=== PATIENT | male | born 1985 | race Caucasian/White ===

== ENCOUNTER 2016-04-02 19:36 | Emergency (ER) | payer BC, OTHER ==
[~2016-04-02] VITALS: Ht 182.9 cm; Wt 86.4 kg
[~2016-04-02 19:36] MED LIST: CIPR1TAB10 PO; IBUP-1050 PO; [UNRECOGNIZED DRUG - CODE] PO
[2016-04-02 19:44] VITALS: TEMP 37; Ht 182.9 cm; Wt 86.4 kg
[2016-04-02] MEDS ORDERED: XYLOCAINE 1%/SOD BICARB 20 ML VIAL INFIL ONE (20:00)
[2016-04-02 21:13] VITALS: BP 123/87; PULSE 60; O2SAT 100
--- NOTE | 2016-04-03 14:36 | EMERGENCY ROOM VISIT NOTE ---
ED Visit Note First contact with patient: 19:50 Chief Complaint: Right hand lacerations. History of Present Illness: Mr. Alexander is a 30-year-old white male who ambulates into the ED accompanied by his father complaining of several lacerations on his right hand. He reports approximately 1 hour he was opening a can lid where the open her mouth function he attempting to pry the lid off with his hand and sustained 3 lacerations to the right hand. He control bleeding prior to the hospital but not wash the wound. Laceration he reports he has a stinging pain over the lacerations. He rates his discomfort 1/10. The pain is nonradiating. His pain worsens with palpation. He has not identified any alleviating factors to the pain. He has not taken medication for pain prior to arrival at the hospital. He denies any associated symptoms; he denies any associated finger weakness/numbness/ tingling.. Review of Systems: As noted above in history of present illness. 8 body systems were reviewed and found to be negative as noted above. Past Medical History: Unspecified eye surgery. Current Medications: Acetazolamide. Allergies to Medications: Aspirin, cephalosporins, electrolyte, NSAIDs, penicillin, pertussis vaccination, phenothiazines, sulfa, vancomycin. Social History: Patient is currently employed; he feels safe in his home environment; he denies tobacco and alcohol use. Tetanus Immunization Status: Patient believes greater than 10 years. Physical Examination: Vital Signs: Date Time Temp Pulse Resp B/P Pulse Ox O2 Delivery O2 Flow Rate FiO2 04/02/16 21:13 60 16 123/87 100 Room Air 04/02/16 19:44 37.0 81 18 152/104 99 Room Air GENERAL: 30-year-old male in mild distress due to pain, nontoxic-appearing, afebrile and hemodynamically stable. NEUROLOGICAL: Awake, alert and oriented to person, place and time. Answering questions appropriately and following commands. SKIN: Warm, dry and pink. Right Hand: Patient has 3 lacerations on the right hand, 2 are superficial wounds full-thickness. The superficial lacerations on the finger pad of the index finger and over the ring finger over the proximal phalanx; each and these are approximately 1 cm in length and are not actively bleeding. Full-thickness laceration is over middle finger PIP joint measures approximately 1.3 cm. Once again there is no active bleeding. No soft tissue eruptions or trauma noted. RIGHT HAND: Lacerations as noted above. There is no gross bony deformity. He has full range of motion in flexion and extension of all MCP, PIP and DIP joints against resistance. Throughout the finger the skin was warm and pink and capillary refill is brisk. He was able to distinguish light sensations through all dermatomes of the fingers. ED Course: Patient is assessed as noted above. Wound Repair: Complexity: Basic Verbal consent was obtained after the risks and benefits were explained. The skin was prepped with betadine and a sterile field set. Wound edges of the full-thickness wound was anesthetized with 1.4 ml buffered 1 % lidocaine. The wound was explored for foreign bodies and none found. Copious irrigation was performed using sterile saline. With direct pressure the bleeding subsided. Debridement was not performed. The wound edges were approximated using 5-0 Ethilon with 3 simple interrupted sutures. Hemostasis and excellent approximation was achieved. Antibacterial ointment and a sterile dressing applied. Patient's other wounds were cleansed with antibacterial soap and water and covered with bacitracin dressings. No complications and the patient tolerated the procedure well. Patient was educated about tonight's findings and instructed on his treatment plan; he verbalizes understanding and agreement with this plan. Clinical Impression: Lacerations of the right hand. Disposition: Patient discharged home in stable condition; prior to departure he was reassessed and subjectively reported he was pain-free. Plan: Comfort measures, wound care, and signs of infection were discussed with the patient. Patient was encouraged to follow-up with PCP or return ED for signs of infection and/or suture removal in 10-12 days
== END 2016-04-02 21:20 | disposition home or self-care (01) ==
LOC: C.EDB 19:37 → C.EDD 21:20
DX: S61.411A Laceration without foreign body of right hand, initial encounter (principal); W26.8XXA Contact with other sharp object(s), not elsewhere classified, initial encounter

== ENCOUNTER 2020-01-22 03:59 | Observation (INO) ==
[2020-01-22] MEDS ORDERED: ONDANSETRON INJ 2 MG/ML 2 ML VIAL IV STA (04:23)
[2020-01-22] MEDS ORDERED: SODIUM CHLORIDE 0.9% 1000ML 1,000 ML IV SCH (04:30)
[2020-01-22] MEDS: MoRPHine SULFATE 4 MG/ML 1 ML CARP\\VIAL IV PRN ×2 (04:38→07:27)
[2020-01-22 04:40] LABS: Basophils # (auto) 0.02 K/uL (0-0.2); Basophils % (auto) 0.2 %; Eosinophils # (auto) 0.07 K/uL (0-0.5); Eosinophils % (auto) 0.6 %; Hematocrit (blood only) 45.9 % (42-52); Hemoglobin 15.8 g/dL (14.0-18.0); Immature Granulocytes # (auto) 0.02 K/uL (0.00-0.02); Immature Granulocytes % (auto) 0.2 %; Lymphocytes # (auto) 2.49 K/uL (1.2-3.4); Lymphocytes % (auto) 22.7 %; Mean Corpuscular Hgb Conc 34.4 g/dL (32-36); Mean Platelet Volume 11.4 fL (7.4-10.4); Monocytes # (auto) 0.81 K/uL (0.11-0.59); Monocytes % (auto) 7.4 %; Neutrophils # (auto) 7.55 K/uL (1.4-6.5); Neutrophils % (auto) 68.9 %; Platelet Count 203 K/uL (130-400); RDW Coefficient of Variation 12.7 % (11.5-14.5); RDW Standard Deviation 42.1 fL (36.4-46.3); White Blood Count 10.96 K/uL (4.8-10.8)
[2020-01-22 04:49] LABS: iSTAT Creatinine 0.9 mg/dl (0.6-1.3); iSTAT Hemoglobin 16.3 g/dl (14.0-18.0); iSTAT Ionized Calcium 1.19 mmol/l (1.12-1.32); iSTAT Potassium 4.4 mmol/L (3.3-5.0)
[2020-01-22 04:52] LABS: Partial Thromboplastin Time 29.2 Seconds (21.0-31.0); Prothrombin Time 10.9 Seconds (9.0-12.0)
[2020-01-22 05:04] LABS: Alanine Aminotransferase 34 U/L (12-78); Albumin Level 4.5 gm/dl (3.4-5.0); Aspartate Aminotransferase 18 U/L (15-37); BUN Creatinine Ratio 24.1 (10-20); Blood Urea Nitrogen 22 mg/dl (7-18); Calcium 9.5 mg/dl (8.5-10.1); Carbon Dioxide 30 mmol/L (21-32); Chloride 103 mmol/L (98-107); Creatinine Clr Calc Pharmacy 123.2 ml/min; Est GFR (African American) 125.2; Glucose 97 mg/dl (70-99); Lipase 106 U/L (73-393); Magnesium 2.3 mg/dl (1.8-2.4); Potassium 4.3 mmol/L (3.5-5.1); Sodium 136 mmol/L (136-145)
[2020-01-22 05:07] LABS: Albumin Globulin Ratio 1.2 (0.9-2); Alkaline Phosphatase 63 U/L (45-117); Bilirubin,Total 0.8 mg/dl (0.2-1); C Reactive Protein < 0.29 mg/dl (0-0.29); Globulin 3.7 gm/dl (2.5-4.0); Total Protein 8.2 gm/dl (6.4-8.2)
--- NOTE | 2020-01-22 07:50 | CT Scan Report ---
CT SCAN OF THE ABDOMEN AND PELVIS WITHOUT CONTRAST CLINICAL HISTORY: Right lower quadrant abdominal pain COMPARISON STUDY: January 2016 TECHNIQUE: CT scan of the abdomen and pelvis was performed from the lung bases to the proximal femurs . Images are reviewed in the axial, sagittal, and coronal planes. IV contrast was not administered fo r this examination. A dose lowering technique was utilized adhering to the principles of ALARA. CT DOSE: 718.69 mGy.cm FINDINGS: Lower chest: The heart is normal in size and configuration, without pericardial effusion. The lung ba ses and pleural spaces are clear. Liver: There is a ventriculoperitoneal shunt catheter. There is a persistent small fluid collection l oculated around the catheter at the anterior margin of the liver. No intrahepatic masses are visualiz ed. Gallbladder: Unremarkable. Spleen: Normal in size and attenuation. Pancreas: Unremarkable. Adrenal glands: Unremarkable. Kidneys: There is a 3 mm nonobstructing left renal calculus. No ureteral calculi are visualized. Bowel: There are dilated small bowel loops with bowel wall edema. The distal small bowel is of normal caliber. The colon is collapsed. The findings are indicative of a small bowel obstruction. There is mild mesenteric edema. The site of obstruction appears to be located within the anterior midabdomen. There is no pneumatosis. There is no portal venous gas. There is mild appendiceal distention similar to the prior study. There is no periappendiceal inflammatory change. Peritoneum: There is no intraperitoneal free air or abdominal ascites. Vasculature: The abdominal aorta is normal in course and caliber. Adenopathy: None. Pelvic viscera: The bladder, and pelvic viscera are unremarkable. Skeletal structures: No destructive osseous lesions are seen. IMPRESSION: 1. Small bowel obstruction. There is associated small bowel wall thickening and mesenteric edema. The re is no pneumatosis. There is no portal venous gas. 2. Nonobstructing left renal calculus 3. Inflammatory stranding surrounding the transverse colon, likely a secondary finding to the small b owel obstruction and mesenteric edema 4. Ventriculoperitoneal shunt catheter with small loculated fluid collections anterior to the left lo be of the liver ACT 112: Negative or not required by law. Electronically signed by: Siva Garg M.D. 01/22/2020 7:48 AM
--- NOTE | 2020-01-22 08:03 | History & Physical Report ---
Date of Service January 22, 2020 Assessment & Plan (1) Small bowel obstruction: (2) Dehydration: He is under observation, Med/Surg, IVFs, NPO except Meds, Sips and Chips, Surgery eval, Monitor daily labs. Labs checked ROS-No Headache, No Visual Changes, No Nausea, No Vomiting, No Fever, No Chills, No Neck Pain or Stiffness, No Chest Pain, No Palpitations, No SOB, No VALDES, No Cough, No Sputum, No Wheezing, + Mid Abdominal Pain, No Diarrhea, No Hematemesis, No Hemoptysis, No Unexpected Weight Loss, No Flank pain, No Melena, No Hematochezia, No Frequency, No Urgency, No Burning, No Hematuria, No Rashes, No Diaphoresis. Appetite is Normal Physical Exam Gen-AAO x 3, NAD, Afebrile Head-NCAT, EOMI, PERRLA, Anicteric Sclera, No Posterior Pharyngeal Erythema Neck-Supple, No JVD, No Thyromegaly, No Masses, No LAD, No Bruits Lungs-Clear to Auscultation Bilaterally, No Rales, No Rhonchi, No Wheezing, No Crepitus Chest-No S4, +S1, +S2, No S3, No Murmurs, No Rubs, No Gallops, No Ectopy Abdomen-Soft, Bowel Sounds Present, Tender, Non Distended, No Hepatomegaly, No Splenomegaly, No Palpable Masses, No Rebound, No Rigidity, No Guarding Musculoskeletal-Full Range of Motion Bilaterally, No CVAT Extremities-No Cyanosis, No Clubbing, No Edema Nuero-Cranial Nerves II-XII grossly intact, Motor WNL, DTRs WNL, Strength WNL, Non Focal Psych-Normal Mood History of Present Illness Chief Complaint: Abd pain Primary Care Provider: Michelle Hall MD 34-year-old male with a past medical history of hydrocephalus, for which he has a ventriculoperitoneal shunt placed and 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 Patient woke up around 2:30 AM with severe mid abdominal pain that was 10 out of 10 when he came in and has now been reduced to 6 out of [address] scan revealed a small bowel obstruction with small bowel thickening. He did not have any nausea or vomiting, his pain did not radiate anywhere, he denies any fevers chills or diaphoresis. He has no diarrhea. He denies any blood in his stool, he has not had a bowel movement and is not passing flatus. Past medical historyhydrocephalus and papilledema Past surgical history- ventriculoperitoneal shunt, right eye surgery for pap illedema Medicationsas below Family historymother is alive and healthy, father is alive with diabetes, he has 2 healthy sisters and currently no children Social historyhe works at the [employer], occasionally drinks alcohol, denies tobacco, denies illicit drug use, he is with no children Allergies Allergy/AdvReac Type Severity Reaction Status Date / Time Cephalosporins Allergy Intermediate VERY RED Verified 01/22/20 04:59 RASH Sulfa (Sulfonamide Allergy Intermediate RASH- Verified 01/22/20 04:59 Antibiotics) JAZMIN NSAIDS (Non-Steroidal Allergy Unknown CAN'T Verified 01/22/20 04:59 Anti-Inflamma REMEMBER Penicillins Allergy Unknown CAN'T Verified 01/22/20 04:59 REMEMBER Pertussis Vaccines Allergy Unknown CAN'T Verified 01/22/20 04:59 REMEMBER Phenothiazines Allergy Unknown CAN'T Verified 01/22/20 04:59 REMEMBER vancomycin Allergy Unknown CAN'T Verified 01/22/20 04:59 REMEMBER zinc Allergy Unknown CAN'T Verified 01/22/20 04:59 REMEMBER aspirin AdvReac Intermediate NOSEBLEEDS Verified 01/22/20 04:59 Macrolide Antibiotics AdvReac Mild upset Verified 01/22/20 04:59 stomach to erythromycin Home Medications Home Medications Medication Instructions Recorded Confirmed Type furosemide 40 mg PO DAILY 01/22/20 01/22/20 History Past Med/Surg History Medical History (Updated 01/22/20 @ 08:01 by Mitch Randhawa DO) Hydrocephalus Social History Smoking Status: Never smoker Preferred Language: Haitian Feels Safe at Home: Yes Results & Data Results & Data ([facility]) Vital Signs (Past 12 Hours) Vital Signs Temp Pulse Pulse Resp BP BP Pulse Ox 01/22/20 06:44 52 L 18 133/87 100 01/22/20 06:00 51 L 13 127/81 97 01/22/20 05:30 54 L 13 125/84 97 01/22/20 05:13 61 17 134/87 97 01/22/20 04:30 63 18 99 01/22/20 04:09 36.9 C 65 14 149/90 H 98 Allergies Cephalosporins Allergy (Intermediate, Verified 01/22/20 04:59) VERY RED RASH Sulfa (Sulfonamide Antibiotics) Allergy (Intermediate, Verified 01/22/20 04:59) RASH- JAZMIN NSAIDS (Non-Steroidal Anti-Inflamma Allergy (Unknown, Verified 01/22/20 04:59) CAN'T REMEMBER Penicillins Allergy (Unknown, Verified 01/22/20 04:59) CAN'T REMEMBER Pertussis Vaccines Allergy (Unknown, Verified 01/22/20 04:59) CAN'T REMEMBER Phenothiazines Allergy (Unknown, Verified 01/22/20 04:59) CAN'T REMEMBER vancomycin Allergy (Unknown, Verified 01/22/20 04:59) CAN'T REMEMBER zinc Allergy (Unknown, Verified 01/22/20 04:59) CAN'T REMEMBER aspirin Adverse Reaction (Intermediate, Verified 01/22/20 04:59) NOSEBLEEDS Macrolide Antibiotics Adverse Reaction (Mild, Verified 01/22/20 04:59) upset stomach to erythromycin Height/Weight/Isolation Height 6 ft Weight 79.1 kg Chemistry 01/22/20 04:30 Sodium 136 Potassium 4.3 Chloride 103 Carbon Dioxide 30 Anion Gap 3.0 BUN 22 H Creatinine 0.91 Glucose 97
[2020-01-22] MEDS ORDERED: ONDANSETRON INJ 2 MG/ML 2 ML VIAL IV PRN (10:52)
[2020-01-22] MEDS ORDERED: ACETAMINOPHEN 325 MG TAB PO PRN (10:52)
[2020-01-22] MEDS ORDERED: MoRPHine SULFATE 4 MG/ML 1 ML CARP\\VIAL IV PRN (10:52)
[2020-01-22] MEDS: D5W AND 1/2NSS 1,000 ML IV SCH ×2 (11:07→18:32)
[2020-01-22 11:28] LABS: Appearance Urine Clear (Clear); Bilirubin Urine Negative (Negative); Blood Urine Negative (Negative); Color Urine Yellow; Glucose Urine UA Negative (Negative); Ketones Urine 1+ (Negative); Leukocyte Esterase Urine Negative (Negative); Nitrite Urine Negative (Negative); Protein Urine Negative (Negative); Specific Gravity Urine 1.023 (1.000-1.030); Urobilinogen Urine Negative (Negative)
--- NOTE | 2020-01-22 11:39 | Surgery Consultation ---
Date of Consultation January 22, 2020 Assessment & Plan (1) Small bowel obstruction: pt is a 34 year-old male who was admitted to hospital for SBO, IMP: SBO, Plan, no emergent surgery indication now, conservative treatment now, NPO, IV fluid, control pain, repeat labs in am, pt may need NG tube if pt develops vomiting, pt and hsi family member agree with the plan, I answered all questions, will F/U, Present on Admission?: Yes History of Present Illness Attending Physician: Mitch Randhawa, History of Present Illness Chief Complaint: Abd pain Primary Care Provider: Michelle Hall MD 34-year-old male with a past medical history of hydrocephalus, for which he has a ventriculoperitoneal shunt placed and 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 Patient woke up around 2:30 AM with severe mid abdominal pain that was 10 out of 10 when he came in and has now been reduced to 6 out of [address] scan revealed a small bowel obstruction with small bowel thickening. He did not have any nausea or vomiting, his pain did not radiate anywhere, he denies any fevers chills or diaphoresis. He has no diarrhea. He denies any blood in his stool, he has not had a bowel movement and is not passing flatus. I ( Andreas Andres MD ) got a call for consult SBO, I reviewed pt's H/P, labs, CT scan with pt, pt feels better, last BM early this morning, Past medical historyhydrocephalus and papilledema Past surgical history- ventriculoperitoneal shunt, right eye surgery for papilledema Medicationsas below Family historymother is alive and healthy, father is alive with diabetes, he has 2 healthy sisters and currently no children Social historyhe works at the [employer], occasionally drinks alcohol, denies tobacco, denies illicit drug use, he is with no children Allergies Allergy/AdvReac Type Severity Reaction Status Date / Time Cephalosporins Allergy Intermediate VERY RED Verified 01/22/20 04:59 RASH Sulfa (Sulfonamide Allergy Intermediate RASH- Verified 01/22/20 04:59 Antibiotics) JAZMIN NSAIDS (Non-Steroidal Allergy Unknown CAN'T Verified 01/22/20 04:59 Anti-Inflamma REMEMBER Penicillins Allergy Unknown CAN'T Verified 01/22/20 04:59 REMEMBER Pertussis Vaccines Allergy Unknown CAN'T Verified 01/22/20 04:59 REMEMBER Phenothiazines Allergy Unknown CAN'T Verified 01/22/20 04:59 REMEMBER vancomycin Allergy Unknown CAN'T Verified 01/22/20 04:59 REMEMBER zinc Allergy Unknown CAN'T Verified 01/22/20 04:59 REMEMBER aspirin AdvReac Intermediate NOSEBLEEDS Verified 01/22/20 04:59 Macrolide Antibiotics AdvReac Mild upset Verified 01/22/20 04:59 stomach to erythromycin Home Medications Home Medications Medication Instructions Recorded Confirmed Type furosemide 40 mg PO DAILY 01/22/20 01/22/20 History Past Med/Surg History Medical History (Updated 01/22/20 @ 08:01 by Mitch Randhawa DO) Hydrocephalus Social History Smoking Status: Never smoker Preferred Language: [place] African Feels Safe at Home: Yes Results & Data Results & Data ([facility]) Vital Signs (Past 12 Hours) Vital Signs Temp Pulse Pulse Resp BP BP Pulse Ox 01/22/20 06:44 52 L 18 133/87 100 01/22/20 06:00 51 L 13 127/81 97 01/22/20 05:30 54 L 13 125/84 97 01/22/20 05:13 61 17 134/87 97 01/22/20 04:30 63 18 99 01/22/20 04:09 36.9 C 65 14 149/90 H 98 Allergies Cephalosporins Allergy (Intermediate, Verified 01/22/20 04:59) VERY RED RASH Sulfa (Sulfonamide Antibiotics) Allergy (Intermediate, Verified 01/22/20 04:59) RASH- JAZMIN NSAIDS (Non-Steroidal Anti-Inflamma Allergy (Unknown, Verified 01/22/20 04:59) CAN'T REMEMBER Penicillins Allergy (Unknown, Verified 01/22/20 04:59) CAN'T REMEMBER Pertussis Vaccines Allergy (Unknown, Verified 01/22/20 04:59) CAN'T REMEMBER Phenothiazines Allergy (Unknown, Verified 01/22/20 04:59) CAN'T REMEMBER vancomycin Allergy (Unknown, Verified 01/22/20 04:59) CAN'T REMEMBER zinc Allergy (Unknown, Verified 01/22/20 04:59) CAN'T REMEMBER aspirin Adverse Reaction (Intermediate, Verified 01/22/20 04:59) NOSEBLEEDS Macrolide Antibiotics Adverse Reaction (Mild, Verified 01/22/20 04:59) upset stomach to erythromycin Height/Weight/Isolation Height 6 ft Weight 79.1 kg Chemistry 01/22/20 04:30 Sodium 136 Potassium 4.3 Chloride 103 Carbon Dioxide 30 Anion Gap 3.0 BUN 22 H Creatinine 0.91 Glucose 97 Allergies Allergy/AdvReac Type Severity Reaction Status Date / Time Cephalosporins Allergy Intermediate VERY RED Verified 01/22/20 04:59 RASH Sulfa (Sulfonamide Allergy Intermediate RASH- Verified 01/22/20 04:59 Antibiotics) JAZMIN NSAIDS (Non-Steroidal Allergy Unknown CAN'T Verified 01/22/20 04:59 Anti-Inflamma REMEMBER Penicillins Allergy Unknown CAN'T Verified 01/22/20 04:59 REMEMBER Pertussis Vaccines Allergy Unknown CAN'T Verified 01/22/20 04:59 REMEMBER Phenothiazines Allergy Unknown CAN'T Verified 01/22/20 04:59 REMEMBER vancomycin Allergy Unknown CAN'T Verified 01/22/20 04:59 REMEMBER zinc Allergy Unknown CAN'T Verified 01/22/20 04:59 REMEMBER aspirin AdvReac Intermediate NOSEBLEEDS Verified 01/22/20 04:59 Macrolide Antibiotics AdvReac Mild upset Verified 01/22/20 04:59 stomach to erythromycin Home Medications Home Medications Medication Instructions Recorded Confirmed Type furosemide 40 mg PO DAILY 01/22/20 01/22/20 History Patient History Medical History (Updated 01/22/20 @ 08:01 by Mitch Randhawa DO) Hydrocephalus Social History Smoking Status: Never smoker Second Hand Exposure: No; Do You Dip or Chew Tobacco: No; Tobacco Cessation Education Requested by Patient: No Hx Alcohol Use: Yes Hx Substance Use: No Preferred Language: [place] African Communication Ability: Effective Web[employer] Portal Architect Required: No Beliefs That Will Affect Care: None Current Living Situation: Spouse Other Information That Helps Us Care for You: No Feels Safe at Home: Yes Safety Concerns: Feels Safe At This Time Assistive Devices: Glasses Review of Systems Review of Systems: All systems reviewed & are unremarkable except as noted in HPI & below Constitutional: as per Subjective / HPI Eyes: as per Subjective / HPI Ear, Nose, Mouth, Throat: as per Subjective / HPI Respiratory: as per Subjective / HPI Cardiovascular: as per Subjective / HPI Gastrointestinal: as per Subjective / HPI Genitourinary: + as per Subjective / HPI Musculoskeletal: as per Subjective / HPI Integumentary: as per Subjective / HPI Neurologic: as per Subjective / HPI obstructive hydrocephalus, V-P shunt, migraine Psychiatric: as per Subjective / HPI Endocrine: as per Subjective / HPI Hematologic / Lymphatic: as per Subjective / HPI Allergy / Immunological: as per Subjective / HPI Physical Exam Constitutional: WD/WN, vitals as above well developed and well nourished Eyes: PERRL, conjunctivae normal, anicteric sclerae ENMT: external ear and nose normal, oropharynx normal Neck: trachea midline, no thyromegaly Respiratory: normal respiratory effort, lungs clear to auscultation Cardiovascular: RRR, no murmur, no edema Rate/Rhythm: regular rate and regular rhythm Gastrointestinal (Abdomen): normal bowel sounds, soft, nontender, no hepatosplenomegaly middle line scar, no tenderness, no distend, BS + Musculoskeletal: no cyanosis or clubbing, extremities motor strength 5/5 Skin: no rashes, warm and dry Neurologic: awake Psychiatric: Orientation: alert and oriented x 3 Results & Data ([facility]) Vital Signs (Past 12 Hours) Vital Signs Temp Pulse Pulse Resp BP BP Pulse Ox 01/22/20 11:12 36.9 C 56 L 159/88 H 99 01/22/20 10:29 48 L 16 134/90 96 01/22/20 09:17 51 L 16 132/85 01/22/20 09:00 50 L 16 134/87 97 01/22/20 06:44 52 L 18 133/87 100 01/22/20 06:00 51 L 13 127/81 97 01/22/20 05:30 54 L 13 125/84 97 01/22/20 05:13 61 17 134/87 97 01/22/20 04:30 63 18 99 01/22/20 04:09 36.9 C 65 14 149/90 H 98 Laboratory Results Abnormal lab results 01/22/20 01/22/20 01/22/20 Range/Units 04:30 04:30 04:34 WBC 10.96 H (4.8-10.8) K/uL MPV 11.4 H (7.4-10.4) fL Neut # (Auto) 7.55 H (1.4-6.5) K/uL Mobile # (Auto) 0.81 H (0.11-0.59) K/uL POC Chloride 100 L (101-112) mmol/L POC Anion Gap 14.0 L (16-25) mmol/L POC BUN 23 H (7-18) mg/dl BUN 22 H (7-18) mg/dl BUN/Creatinine Ratio 24.1 H (10-20) Urine Ketones (Negative) 01/22/20 Range/Units 11:11 WBC (4.8-10.8) K/uL MPV (7.4-10.4) fL Neut # (Auto) (1.4-6.5) K/uL Mobile # (Auto) (0.11-0.59) K/uL POC Chloride (101-112) mmol/L POC Anion Gap (16-25) mmol/L POC BUN (7-18) mg/dl BUN (7-18) mg/dl BUN/Creatinine Ratio (10-20) Urine Ketones 1+ H (Negative) Diagnostic Findings CT SCAN OF THE ABDOMEN AND PELVIS WITHOUT CONTRAST CLINICAL HISTORY: Right lower quadrant abdominal pain COMPARISON STUDY: January 2016 TECHNIQUE: CT scan of the abdomen and pelvis was performed from the lung bases to the proximal femurs. Images are reviewed in the axial, sagittal, and coronal planes. IV contrast was not administered for this examination. A dose lowering technique was utilized adhering to the principles of ALARA. CT DOSE: 718.69 mGy.cm FINDINGS: Lower chest: The heart is normal in size and configuration, without pericardial effusion. The lung bases and pleural spaces are clear. Liver: There is a ventriculoperitoneal shunt catheter. There is a persistent small fluid collection loculated around the catheter at the anterior margin of the liver. No intrahepatic masses are visualized. Gallbladder: Unremarkable. Spleen: Normal in size and attenuation. Pancreas: Unremarkable. Adrenal glands: Unremarkable. Kidneys: There is a 3 mm nonobstructing left renal calculus. No ureteral calculi are visualized. Bowel: There are dilated small bowel loops with bowel wall edema. The distal small bowel is of normal caliber. The colon is collapsed. The findings are indicative of a small bowel obstruction. There is mild mesenteric edema. The site of obstruction appears to be located within the anterior midabdomen. There is no pneumatosis. There is no portal venous gas. There is mild appendiceal distention similar to the prior study. There is no periappendiceal inflammatory change. Peritoneum: There is no intraperitoneal free air or abdominal ascites. Vasculature: The abdominal aorta is normal in course and caliber. Adenopathy: None. Pelvic viscera: The bladder, and pelvic viscera are unremarkable. Skeletal structures: No destructive osseous lesions are seen. IMPRESSION: 1. Small bowel obstruction. There is associated small bowel wall thickening and mesenteric edema. There is no pneumatosis. There is no portal venous gas. 2. Nonobstructing left renal calculus 3. Inflammatory stranding surrounding the transverse colon, likely a secondary finding to the small bowel obstruction and mesenteric edema 4. Ventriculoperitoneal shunt catheter with small loculated fluid collections anterior to the left lobe of the liver FL small bowel follow through CLINICAL HISTORY: SMALL BOWEL INTUSSUSCEPTION COMPARISON STUDY: CT of the abdomen and pelvis January 20, 2016. FLUOROSCOPY TIME: 5 minutes. FLUOROSCOPIC IMAGES: 7. FINDINGS: Cashier Clerk KUB demonstrates a normal bowel gas pattern. Pelvic calcifications represent phleboliths. No mucosal abnormalities identified within the jejunum or ileum. There is no evidence for a small bowel obstruction. No intussusception was identified by fluoroscopy. Transit time to the cecum was rapid at 20 minutes. Incidental note is made of a catheter projecting over the right upper quadrant of the abdomen. This was shown on prior CT. IMPRESSION: 1. Unremarkable small bowel follow-through. No mass or intussusception identified. 2. Rapid transit time of contrast to the cecum.
[2020-01-22] MEDS: HEPARIN SOD 5,000 UNIT/0.5 ML VIAL SQ SCH ×2 (13:02→19:40)
[2020-01-23] MEDS: D5W AND 1/2NSS 1,000 ML IV SCH ×2 (02:32→10:57)
--- NOTE | 2020-01-23 06:22 | Emergency Department Note ---
History of Present Illness General Chief complaint: Abdominal Pain Stated complaint: SHARP RIGHT SIDED ABDOMINAL PAIN Time Seen by Provider: 01/22/20 04:12 History of Present Illness Maximum Pain Intensity: 10 This is a 34-year-old male presenting to the emergency department for evaluation of right-sided abdominal pain for the past 1 to 2 hours. The patient is fairly healthy, but does have an old history of hydrocephalus with shunt. The patient relates a history of enlarged appendix findings in the past, but has not had any distinct surgical process other than his shunt. The patient has not had fevers or chills. He is slightly nauseated but without vomiting. He feels like he has been eating, drinking, and using the bathroom is normal. His discomfort tonight is much stronger than normal, and rates a 10/10. He has not tried anything [id number] for his symptoms. Home Medications Home Medications Medication Instructions Recorded Confirmed Type furosemide 40 mg PO DAILY 01/22/20 01/22/20 History Allergies Allergy/AdvReac Type Severity Reaction Status Date / Time Cephalosporins Allergy Intermediate VERY RED Verified 01/22/20 04:59 RASH Sulfa (Sulfonamide Allergy Intermediate RASH- Verified 01/22/20 04:59 Antibiotics) JAZMIN NSAIDS (Non-Steroidal Allergy Unknown CAN'T Verified 01/22/20 04:59 Anti-Inflamma REMEMBER Penicillins Allergy Unknown CAN'T Verified 01/22/20 04:59 REMEMBER Pertussis Vaccines Allergy Unknown CAN'T Verified 01/22/20 04:59 REMEMBER Phenothiazines Allergy Unknown CAN'T Verified 01/22/20 04:59 REMEMBER vancomycin Allergy Unknown CAN'T Verified 01/22/20 04:59 REMEMBER zinc Allergy Unknown CAN'T Verified 01/22/20 04:59 REMEMBER aspirin AdvReac Intermediate NOSEBLEEDS Verified 01/22/20 04:59 Macrolide Antibiotics AdvReac Mild upset Verified 01/22/20 04:59 stomach to erythromycin Past Med/Surg History Medical History (Updated 01/23/20 @ 06:22 by Sami Boss PA-C) Hydrocephalus Surgical History (Updated 01/23/20 @ 06:18 by Sami Boss PA-C) 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 Social History Smoking Status: Never smoker Second Hand Exposure: No; Do You Dip or Chew Tobacco: No; Tobacco Cessation Education Requested by Patient: No Hx Alcohol Use: Yes Hx Substance Use: No Preferred Language: Polish Communication Ability: Effective Visual Education Director Required: No Beliefs That Will Affect Care: None Current Living Situation: Spouse Other Information That Helps Us Care for You: No Feels Safe at Home: Yes Safety Concerns: Feels Safe At This Time Assistive Devices: None Review of Systems A total of 10 systems reviewed and were otherwise negative Physical Exam Vital Signs Vital Signs - 24 hr 01/22/20 06:44 Pulse Rate [Finger] 52 L Pulse Rhythm [Finger] Regular Respiratory Rate 18 Respiratory Effort / Characteristics Non-Labored Spontaneous Respiratory Depth Normal Respiratory Pattern Regular Blood Pressure [Left Arm] 133/87 Blood Pressure Mean [Left Arm] 102 Blood Pressure Position [Left Arm] Lying Pulse Oximetry 100 Oxygen Delivery Method Room Air VITALS: Vitals are noted on the nurse's note and reviewed by myself. Vital signs stable. GENERAL: Well-developed, well-nourished, white male, who is in no acute distress and resting comfortably. Patient is cooperative with the examination. HEAD: Normocephalic atraumatic. NECK: Supple without nuchal rigidity. No lymphadenopathy. No thyromegaly. Cervical spine is nontender. HEART: Regular rate and rhythm without murmurs gallops or rubs. LUNGS: Clear to auscultation bilaterally without wheezes, rales or rhonchi. No retractions or accessory muscle use. ABDOMEN: Positive decreased bowel sounds x 4. Soft with mild tenderness in the right lower quadrant. No rebound or guarding. MUSCULOSKELETAL: No muscle atrophy, erythema, or edema noted. Full range of motion in all extremities. NEURO: Patient was alert and oriented to person place and time. CN II through XII grossly intact. Course Administered Medications Heparin Sodium (Porcine) (Heparin Sod 5,000 Unit/0.5 Ml Vial) 5,000 units SQ Q12 [facility] Stop: 02/21/20 08:59 Last Admin: 01/22/20 19:40 Dose: 5,000 units Documented by: [id number] Admin: 01/22/20 13:02 Dose: 5,000 units Documented by: [id number] Dextrose/Sodium Chloride (D5w And 1/2nss) 1,000 mls @ 125 mls/hr IV .Q8H [facility] Stop: 02/21/20 10:51 Last Admin: 01/23/20 02:32 Dose: 125 mls/hr Documented by: [id number] Infusion: 01/23/20 02:32 Dose: 125 mls/hr Documented by: [id number] Admin: 01/22/20 18:32 Dose: 125 mls/hr Documented by: [id number] Infusion: 01/22/20 18:32 Dose: 125 mls/hr Documented by: [id number] Admin: 01/22/20 11:07 Dose: 125 mls/hr Documented by: [id number] Discontinued Medications Sodium Chloride (Nss 1000ml) 1,000 mls @ 999 mls/hr IV .Q1H1M [facility] Stop: 01/22/20 05:30 Last Infusion: 01/22/20 05:43 Dose: 0 mls/hr Documented by: [id number] Admin: 01/22/20 04:38 Dose: 999 mls/hr Documented by: [id number] Morphine Sulfate (Morphine Sulfate 4 Mg/Ml 1 Ml Carp\Vial) 4 mg IV Q30M PRN PRN Reason: Pain Stop: 02/05/20 04:22 Last Admin: 01/22/20 07:27 Dose: 4 mg Documented by: [id number] Admin: 01/22/20 04:38 Dose: 4 mg Documented by: [id number] Ondansetron HCl (Ondansetron Inj 2 Mg/Ml 2 Ml Vial) 4 mg IV NOW STA Stop: 01/22/20 04:24 Last Admin: 01/22/20 04:38 Dose: 4 mg Documented by: [id number] Medical Decision Making Differential Diagnosis Differential diagnosis: Etiologies such as biliary colic, cholecystitis, hepatitis, pancreatitis, cardiac disease, pancreatitis, gastritis, peptic ulcer disease, appendicitis, cystitis, diverticulitis, mesenteric ischemia, inflammatory bowel disease, ileus, bowel obstruction, testicular/adnexal torsion, aortic pathology, shingles, as well as others were considered Laboratory Data Result diagrams: 01/22/20 04:30 01/22/20 04:30 Lab Results 01/22/20 01/22/20 01/22/20 Range/Units 04:30 04:30 04:30 WBC 10.96 H (4.8-10.8) K/uL RBC 5.10 (4.7-6.1) M/uL Hgb 15.8 (14.0-18.0) g/dL POC Hgb (14.0-18.0) g/dl Hct 45.9 (42-52) % POC Hct (42-52) % MCV 90.0 (80-100) fL MCH 31.0 (25-34) pg MCHC 34.4 (32-36) g/dL RDW Std Deviation 42.1 (36.4-46.3) fL RDW Coeff of Artemio 12.7 (11.5-14.5) % Plt Count 203 (130-400) K/uL MPV 11.4 H (7.4-10.4) fL Immature Gran % (Auto) 0.2 % Neut % (Auto) 68.9 % Lymph % (Auto) 22.7 % [place] % (Auto) 7.4 % Eos % (Auto) 0.6 % Baso % (Auto) 0.2 % Neut # (Auto) 7.55 H (1.4-6.5) K/uL Lymph # (Auto) 2.49 (1.2-3.4) K/uL [place] # (Auto) 0.81 H (0.11-0.59) K/uL Eos # (Auto) 0.07 (0-0.5) K/uL Baso # (Auto) 0.02 (0-0.2) K/uL Immature Gran # (Auto) 0.02 (0.00-0.02) K/uL ESR 3 (0-14) mm/hr PT 10.9 (9.0-12.0) Seconds INR 1.0 (0.9-1.1) APTT 29.2 (21.0-31.0) Seconds PTT Ratio 1.0 POC Sodium (135-144) mmol/L Sodium (136-145) mmol/L POC Potassium (3.3-5.0) mmol/L Potassium (3.5-5.1) mmol/L POC Chloride (101-112) mmol/L Chloride (98-107) mmol/L Carbon Dioxide (21-32) mmol/L POC Total CO2 (24-31) mmol/L Anion Gap (3-11) POC Anion Gap (16-25) mmol/L POC BUN (7-18) mg/dl BUN (7-18) mg/dl Creatinine (0.6-1.4) mg/dl POC Creatinine (0.6-1.3) mg/dl Est Cr Clr Drug Dosing ml/min Est GFR ( Amer) Est GFR (Non-Af Amer) BUN/Creatinine Ratio (10-20) Glucose (70-99) mg/dl POC Glucose (other) (70-99) mg/dl Lactate (0.4-2.0) mmol/L Calcium (8.5-10.1) mg/dl POC Ioniz Calcium Christa (1.12-1.32) mmol/l Magnesium (1.8-2.4) mg/dl Total Bilirubin (0.2-1) mg/dl AST (15-37) U/L ALT (12-78) U/L Alkaline Phosphatase (45-117) U/L C-Reactive Protein (0-0.29) mg/dl Total Protein (6.4-8.2) gm/dl Albumin (3.4-5.0) gm/dl Globulin (2.5-4.0) gm/dl Albumin/Globulin Ratio (0.9-2) Lipase (73-393) U/L 01/22/20 01/22/20 01/22/20 Range/Units 04:30 04:30 04:34 WBC (4.8-10.8) K/uL RBC (4.7-6.1) M/uL Hgb (14.0-18.0) g/dL POC Hgb 16.3 (14.0-18.0) g/dl Hct (42-52) % POC Hct 48 (42-52) % MCV (80-100) fL MCH (25-34) pg MCHC (32-36) g/dL RDW Std Deviation (36.4-46.3) fL RDW Coeff of Artemio (11.5-14.5) % Plt Count (130-400) K/uL MPV (7.4-10.4) fL Immature Gran % (Auto) % Neut % (Auto) % Lymph % (Auto) % [place] % (Auto) % Eos % (Auto) % Baso % (Auto) % Neut # (Auto) (1.4-6.5) K/uL Lymph # (Auto) (1.2-3.4) K/uL [place] # (Auto) (0.11-0.59) K/uL Eos # (Auto) (0-0.5) K/uL Baso # (Auto) (0-0.2) K/uL Immature Gran # (Auto) (0.00-0.02) K/uL ESR (0-14) mm/hr PT (9.0-12.0) Seconds INR (0.9-1.1) APTT (21.0-31.0) Seconds PTT Ratio POC Sodium 138 (135-144) mmol/L Sodium 136 (136-145) mmol/L POC Potassium 4.4 (3.3-5.0) mmol/L Potassium 4.3 (3.5-5.1) mmol/L POC Chloride 100 L (101-112) mmol/L Chloride 103 (98-107) mmol/L Carbon Dioxide 30 (21-32) mmol/L POC Total CO2 29 (24-31) mmol/L Anion Gap 3.0 (3-11) POC Anion Gap 14.0 L (16-25) mmol/L POC BUN 23 H (7-18) mg/dl BUN 22 H (7-18) mg/dl Creatinine 0.91 (0.6-1.4) mg/dl POC Creatinine 0.9 (0.6-1.3) mg/dl Est Cr Clr Drug Dosing 123.2 ml/min Est GFR ( Amer) 125.2 Est GFR (Non-Af Amer) 108.0 BUN/Creatinine Ratio 24.1 H (10-20) Glucose 97 (70-99) mg/dl POC Glucose (other) 98 (70-99) mg/dl Lactate 0.7 (0.4-2.0) mmol/L Calcium 9.5 (8.5-10.1) mg/dl POC Ioniz Calcium Christa 1.19 (1.12-1.32) mmol/l Magnesium 2.3 (1.8-2.4) mg/dl Total Bilirubin 0.8 (0.2-1) mg/dl AST 18 (15-37) U/L ALT 34 (12-78) U/L Alkaline Phosphatase 63 (45-117) U/L C-Reactive Protein < 0.29 (0-0.29) mg/dl Total Protein 8.2 (6.4-8.2) gm/dl Albumin 4.5 (3.4-5.0) gm/dl Globulin 3.7 (2.5-4.0) gm/dl Albumin/Globulin Ratio 1.2 (0.9-2) Lipase 106 (73-393) U/L Imaging Data Radiologist's Impression: CT SCAN OF THE ABDOMEN AND PELVIS WITHOUT CONTRAST CLINICAL HISTORY: Right lower quadrant abdominal pain COMPARISON STUDY: January 2016 TECHNIQUE: CT scan of the abdomen and pelvis was performed from the lung bases to the proximal femurs. Images are reviewed in the axial, sagittal, and coronal planes. IV contrast was not administered for this examination. A dose lowering technique was utilized adhering to the principles of ALARA. CT DOSE: 718.69 mGy.cm FINDINGS: Lower chest: The heart is normal in size and configuration, without pericardial effusion. The lung bases and pleural spaces are clear. Liver: There is a ventriculoperitoneal shunt catheter. There is a persistent small fluid collection loculated around the catheter at the anterior margin of the liver. No intrahepatic masses are visualized. Gallbladder: Unremarkable. Spleen: Normal in size and attenuation. Pancreas: Unremarkable. Adrenal glands: Unremarkable. Kidneys: There is a 3 mm nonobstructing left renal calculus. No ureteral calculi are visualized. Bowel: There are dilated small bowel loops with bowel wall edema. The distal small bowel is of normal caliber. The colon is collapsed. The findings are indicative of a small bowel obstruction. There is mild mesenteric edema. The site of obstruction appears to be located within the anterior midabdomen. There is no pneumatosis. There is no portal venous gas. There is mild appendiceal distention similar to the prior study. There is no periappendiceal inflammatory change. Peritoneum: There is no intraperitoneal free air or abdominal ascites. Vasculature: The abdominal aorta is normal in course and caliber. Adenopathy: None. Pelvic viscera: The bladder, and pelvic viscera are unremarkable. Skeletal structures: No destructive osseous lesions are seen. IMPRESSION: 1. Small bowel obstruction. There is associated small bowel wall thickening and mesenteric edema. There is no pneumatosis. There is no portal venous gas. 2. Nonobstructing left renal calculus 3. Inflammatory stranding surrounding the transverse colon, likely a secondary finding to the small bowel obstruction and mesenteric edema 4. Ventriculoperitoneal shunt catheter with small loculated fluid collections anterior to the left lobe of the liver MDM Narrative Physical exam and history were performed. Nursing notes, EMR, and Medication List were personally reviewed. Patient appears to have abdominal pain bringing him to the ER. On exam he does have some tenderness in the right lower quadrant and with decreased bowel sounds. IV access was established and labs were obtained. The patient was given IV morphine and IV Zofran. He was hydrated with normal saline. The patient was sent to CT scan for further evaluation of his symptoms. The patient's blood work is as above and was reviewed. He does not have a significantly elevated white blood cell count, gross anemia, bandemia, or significant electrolyte imbalance. Lipase and transaminases are not diagnostic. Lactic acid is normal. Urine is without gross evidence of infection. CT scan was reviewed by myself and radiology, and is concerning for small bowel obstruction. This is likely the cause of the patient's symptoms. Overall the patient does not appear stable for discharge home. He is quite uncomfortable from a pain standpoint. NG tube was considered, but deferred as the patient is not having any vomiting. I did discuss the case with the on-call [facility] hospitalist team. Please see their dictation for further patient course, plan, and disposition. The chart was completed utilizing [employer] Speech Voice Recognition Software. Grammatical errors, random word insertions, pronoun errors, and incomplete sentences are an occasional consequence of this system due to software limitations, ambient noise, and hardware issues. Any formal questions or concerns about the content, text, or information contained within the body of this dictation should be directly addressed to the provider for clarification. . Impression & Plan Small bowel obstruction, Abdominal pain Discharge Plan Visit Data Chief Complaint: Abdominal Pain Stated Complaint: SHARP RIGHT SIDED ABDOMINAL PAIN ED Provider: Ade Benitez ED Midlevel Provider: Sami Boss Discharge Problem: Small bowel obstruction, Abdominal pain Patient Disposition: Admitted As Inpatient Discharge Instructions Interventions: ED Discharge Assessment Last Done: 01/22/20 10:29 Discharge Problem: Abdominal pain Qualifiers: Abdominal location: right lower quadrant Qualified Code(s): R10.31 - Right lower quadrant pain
[2020-01-23 07:48] LABS: Hematocrit (blood only) 40.7 % (42-52); Hemoglobin 13.8 g/dL (14.0-18.0); Mean Corpuscular Hemoglobin 30.7 pg (25-34); Mean Corpuscular Hgb Conc 33.9 g/dL (32-36); Mean Corpuscular Volume 90.4 fL (80-100); Mean Platelet Volume 10.8 fL (7.4-10.4); Platelet Count 175 K/uL (130-400); RDW Coefficient of Variation 12.9 % (11.5-14.5); RDW Standard Deviation 42.7 fL (36.4-46.3); White Blood Count 6.99 K/uL (4.8-10.8)
[2020-01-23] MEDS: HEPARIN SOD 5,000 UNIT/0.5 ML VIAL SQ SCH (08:05)
--- NOTE | 2020-01-23 08:25 | Hospitalist Progress Note ---
Date of Service January 23, 2020 Assessment & Plan (1) Small bowel obstruction: (2) Dehydration: Continue observation, Med/Surg, IVFs, NPO except Meds, Sips and Chips, Surgery eval, Monitor daily labs. Labs checked ROS-No Headache, No Visual Changes, No Nausea, No Vomiting, No Fever, No Chills, No Neck Pain or Stiffness, No Chest Pain, No Palpitations, No SOB, No VALDES, No Cough, No Sputum, No Wheezing, No Abdominal Pain, No Diarrhea, No Hematemesis, No Hemoptysis, No Unexpected Weight Loss, No Flank pain, No Melena, No Hematochezia, No Frequency, No Urgency, No Burning, No Hematuria, No Rashes, No Diaphoresis. Appetite is Normal, +Flatus Physical Exam Gen-AAO x 3, NAD, Afebrile Head-NCAT, EOMI, PERRLA, Anicteric Sclera, No Posterior Pharyngeal Erythema Neck-Supple, No JVD, No Thyromegaly, No Masses, No LAD, No Bruits Lungs-Clear to Auscultation Bilaterally, No Rales, No Rhonchi, No Wheezing, No Crepitus Chest-No S4, +S1, +S2, No S3, No Murmurs, No Rubs, No Gallops, No Ectopy Abdomen-Soft, Bowel Sounds Present, Non Tender, Non Distended, No Hepatomegaly, No Splenomegaly, No Palpable Masses, No Rebound, No Rigidity, No Guarding Musculoskeletal-Full Range of Motion Bilaterally, No CVAT Extremities-No Cyanosis, No Clubbing, No Edema Nuero-Cranial Nerves II-XII grossly intact, Motor WNL, DTRs WNL, Strength WNL, Non Focal Psych-Normal Mood Admission and Anticipated Discharge Date Admission Date: January 22, 2020 Results & Data Results & Data ([facility]) Vital Signs (Past 12 Hours) Vital Signs Temp Pulse Resp BP Pulse Ox 01/23/20 07:27 36.4 C L 57 L 16 143/87 H 100 01/22/20 23:29 36.8 C 51 L 16 122/82 98
[2020-01-23 08:45] LABS: BUN Creatinine Ratio 12.3 (10-20); Calcium 8.5 mg/dl (8.5-10.1); Creatinine Clr Calc Pharmacy 136.7 ml/min; Est GFR (African American) 131.9; Est GFR (Non-African American) 113.8; Potassium 3.8 mmol/L (3.5-5.1)
--- NOTE | 2020-01-23 11:53 | Surgery Progress Note ---
Date of Service passed BM, no abdominal pain, tolerated clear diet, January 23, 2020 Assessment & Plan (1) Small bowel obstruction: pt is a 34 year-old male who was admitted to hospital for SBO, IMP: SBO, Plan, no emergent surgery indication now, conservative treatment now, NPO, IV fluid, control pain, repeat labs in am, pt may need NG tube if pt develops vomiting, pt and hsi family member agree with the plan, I answered all questions, will F/U, 01/23/2020 11:52AM doing fine, passed BM, SBO resolved possible D/C home today or tomorrow, F/U fl 2 weeks, Admission and Anticipated Discharge Date Admission Date: January 22, 2020 Review of Systems Constitutional: as per Subjective / HPI Eyes: as per Subjective / HPI Ear, Nose, Mouth, Throat: as per Subjective / HPI Respiratory: as per Subjective / HPI Cardiovascular: as per Subjective / HPI Gastrointestinal: as per Subjective / HPI Genitourinary: + as per Subjective / HPI Musculoskeletal: as per Subjective / HPI Integumentary: as per Subjective / HPI Neurologic: as per Subjective / HPI obstructive hydrocephalus, V-P shunt, migraine Psychiatric: as per Subjective / HPI Endocrine: as per Subjective / HPI Hematologic / Lymphatic: as per Subjective / HPI Allergy / Immunological: as per Subjective / HPI Physical Exam Constitutional: WD/WN, vitals as above well developed and well nourished Eyes: PERRL, conjunctivae normal, anicteric sclerae ENMT: external ear and nose normal, oropharynx normal Neck: trachea midline, no thyromegaly Respiratory: normal respiratory effort, lungs clear to auscultation Cardiovascular: RRR, no murmur, no edema Rate/Rhythm: regular rate and regular rhythm Gastrointestinal (Abdomen): normal bowel sounds, soft, nontender, no hepatosplenomegaly Musculoskeletal: no cyanosis or clubbing, extremities motor strength 5/5 Skin: no rashes, warm and dry Neurologic: awake Psychiatric: Orientation: alert and oriented x 3 Results & Data ([facility]) Vital Signs (Past 12 Hours) Vital Signs Temp Pulse Resp BP Pulse Ox 01/23/20 07:27 36.4 C L 57 L 16 143/87 H 100
--- NOTE | 2020-01-23 17:06 | Discharge Summary ---
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 Patient woke up around 2:30 AM with severe mid abdominal pain that was 10 out of 10 when he came in and has now been reduced to 6 out of [address] scan revealed a small bowel obstruction with small bowel thickening. He did not have any nausea or vomiting, his pain did not radiate anywhere, he denies any fevers chills or diaphoresis. He has no diarrhea. He denies any blood in his stool, he has not had a bowel movement and is not passing flatus. Past medical historyhydrocephalus and papilledema Past surgical history- ventriculoperitoneal shunt, right eye surgery for papilledema Medicationsas below Family historymother is alive and healthy, father is alive with diabetes, he has 2 healthy sisters and currently no children Social historyhe works at the [employer], occasionally drinks alcohol, denies tobacco, denies illicit drug use, he is with no children Admission Exam Per Admitting Provider Gen-AAO x 3, NAD, Afebrile Head-NCAT, EOMI, PERRLA, Anicteric Sclera, No Posterior Pharyngeal Erythema Neck-Supple, No JVD, No Thyromegaly, No Masses, No LAD, No Bruits Lungs-Clear to Auscultation Bilaterally, No Rales, No Rhonchi, No Wheezing, No Crepitus Chest-No S4, +S1, +S2, No S3, No Murmurs, No Rubs, No Gallops, No Ectopy Abdomen-Soft, Bowel Sounds Present, Tender, Non Distended, No Hepatomegaly, No Splenomegaly, No Palpable Masses, No Rebound, No Rigidity, No Guarding Musculoskeletal-Full Range of Motion Bilaterally, No CVAT Extremities-No Cyanosis, No Clubbing, No Edema Nuero-Cranial Nerves II-XII grossly intact, Motor WNL, DTRs WNL, Strength WNL, Non Focal Psych-Normal Mood Principal Diagnosis SBO Discharge Exam ROS-No Headache, No Visual Changes, No Nausea, No Vomiting, No Fever, No Chills, No Neck Pain or Stiffness, No Chest Pain, No Palpitations, No SOB, No VALDES, No Cough, No Sputum, No Wheezing, No Abdominal Pain, No Diarrhea, No Hematemesis, No Hemoptysis, No Unexpected Weight Loss, No Flank pain, No Melena, No Hematochezia, No Frequency, No Urgency, No Burning, No Hematuria, No Rashes, No Diaphoresis. Appetite is Normal Physical Exam Gen-AAO x 3, NAD, Afebrile Head-NCAT, EOMI, PERRLA, Anicteric Sclera, No Posterior Pharyngeal Erythema Neck-Supple, No JVD, No Thyromegaly, No Masses, No LAD, No Bruits Lungs-Clear to Auscultation Bilaterally, No Rales, No Rhonchi, No Wheezing, No Crepitus Chest-No S4, +S1, +S2, No S3, No Murmurs, No Rubs, No Gallops, No Ectopy Abdomen-Soft, Bowel Sounds Present, Non Tender, Non Distended, No Hepatomegaly, No Splenomegaly, No Palpable Masses, No Rebound, No Rigidity, No Guarding Musculoskeletal-Full Range of Motion Bilaterally, No CVAT Extremities-No Cyanosis, No Clubbing, No Edema Nuero-Cranial Nerves II-XII grossly intact, Motor WNL, DTRs WNL, Strength WNL, Non Focal Psych-Normal Mood Discharge Data Allergies Allergy/AdvReac Type Severity Reaction Status Date / Time Cephalosporins Allergy Intermediate VERY RED Verified 01/22/20 04:59 RASH Sulfa (Sulfonamide Allergy Intermediate RASH- Verified 01/22/20 04:59 Antibiotics) JAZMIN NSAIDS (Non-Steroidal Allergy Unknown CAN'T Verified 01/22/20 04:59 Anti-Inflamma REMEMBER Penicillins Allergy Unknown CAN'T Verified 01/22/20 04:59 REMEMBER Pertussis Vaccines Allergy Unknown CAN'T Verified 01/22/20 04:59 REMEMBER Phenothiazines Allergy Unknown CAN'T Verified 01/22/20 04:59 REMEMBER vancomycin Allergy Unknown CAN'T Verified 01/22/20 04:59 REMEMBER zinc Allergy Unknown CAN'T Verified 01/22/20 04:59 REMEMBER aspirin AdvReac Intermediate NOSEBLEEDS Verified 01/22/20 04:59 Macrolide Antibiotics AdvReac Mild upset Verified 01/22/20 04:59 stomach to erythromycin Consultations 01/22/20 06:46 ED Decision to Admit Stat 01/22/20 10:52 Consult General Surgery Routine Ordered Studies 01/22/20 04:23 CT abd pelvis wo con Urgent Current Diagnoses Dehydration (01/22/20) Unspecified intestinal obstruction, unspecified as to partial versus complete obstruction (01/22/20) Allergies Cephalosporins Allergy (Intermediate, Verified 01/22/20 04:59) VERY RED RASH Sulfa (Sulfonamide Antibiotics) Allergy (Intermediate, Verified 01/22/20 04:59) RASH- JAZMIN NSAIDS (Non-Steroidal Anti-Inflamma Allergy (Unknown, Verified 01/22/20 04:59) CAN'T REMEMBER Penicillins Allergy (Unknown, Verified 01/22/20 04:59) CAN'T REMEMBER Pertussis Vaccines Allergy (Unknown, Verified 01/22/20 04:59) CAN'T REMEMBER Phenothiazines Allergy (Unknown, Verified 01/22/20 04:59) CAN'T REMEMBER vancomycin Allergy (Unknown, Verified 01/22/20 04:59) CAN'T REMEMBER zinc Allergy (Unknown, Verified 01/22/20 04:59) CAN'T REMEMBER aspirin Adverse Reaction (Intermediate, Verified 01/22/20 04:59) NOSEBLEEDS Macrolide Antibiotics Adverse Reaction (Mild, Verified 01/22/20 04:59) upset stomach to erythromycin Height/Weight/Isolation Height 6 ft Weight 79.1 kg Chemistry 01/22/20 01/23/20 04:30 07:39 Sodium 136 139 Potassium 4.3 3.8 Chloride 103 107 Carbon Dioxide 30 30 Anion Gap 3.0 2.0 L BUN 22 H 10 D Creatinine 0.91 0.82 Glucose 97 99 Urinalysis 01/22/20 11:11 Urine Color Yellow Urine Appearance Clear Urine pH 6.0 Ur Specific [place] 1.023 Urine Protein Negative Urine Glucose (UA) Negative Urine Ketones 1+ H Urine Blood Negative Urine Nitrite Negative Urine Bilirubin Negative Hospital Course (1) Small bowel obstruction: (2) Dehydration: DC home, moving his bowels now and pain gone Labs checked ROS-No Headache, No Visual Changes, No Nausea, No Vomiting, No Fever, No Chills, No Neck Pain or Stiffness, No Chest Pain, No Palpitations, No SOB, No VALDES, No Cough, No Sputum, No Wheezing, No Abdominal Pain, No Diarrhea, No Hematemesis, No Hemoptysis, No Unexpected Weight Loss, No Flank pain, No Melena, No Hematochezia, No Frequency, No Urgency, No Burning, No Hematuria, No Rashes, No Diaphoresis. Appetite is Normal, +Flatus Physical Exam Gen-AAO x 3, NAD, Afebrile Head-NCAT, EOMI, PERRLA, Anicteric Sclera, No Posterior Pharyngeal Erythema Neck-Supple, No JVD, No Thyromegaly, No Masses, No LAD, No Bruits Lungs-Clear to Auscultation Bilaterally, No Rales, No Rhonchi, No Wheezing, No Crepitus Chest-No S4, +S1, +S2, No S3, No Murmurs, No Rubs, No Gallops, No Ectopy Abdomen-Soft, Bowel Sounds Present, Non Tender, Non Distended, No Hepatomegaly, No Splenomegaly, No Palpable Masses, No Rebound, No Rigidity, No Guarding Musculoskeletal-Full Range of Motion Bilaterally, No CVAT Extremities-No Cyanosis, No Clubbing, No Edema Nuero-Cranial Nerves II-XII grossly intact, Motor WNL, DTRs WNL, Strength WNL, Non Focal Psych-Normal Mood Total Time Total Time Spent Total Time Spent (In Minutes): 45 min Total Time Includes: Examination of the Patient, Discharge Planning and Medication Reconciliation Discharge Plan Discharge Items Patient Disposition: Home - Self-Care Reason For Visit: SBO/ABD PAIN Discharge Diagnosis: SBO Activity: Resume your previous activity Lifting: Gradually increase as tolerated Bathing: No limitations Sexual Activity: When tolerated Exercise/Sports: Gradually increase as tolerated Driving/Machine Use: No limitations Weightbearing: Full weightbearing Non-emergency contact: Primary Care Provider Call non-emergency contact if: you have any medication questions Follow-up/Referrals: Michelle Hall MD [Primary Care Provider] - Diet: Clear liquid Diet Comment: Advance to regular diet as tolerated Addtl Attending Provider Instructions: None Pending Studies at Discharge: No Stand-Alone Forms: My Widem[facility], Smoking Cessation Medications and DC Order Prescriptions: Continued furosemide 40 mg tablet 40 mg PO DAILY RF: 0 Discharge Orders: Discharge Order (Routine); Ordered 01/23/20 Ordered By: Mitch Randhawa Admission Data Admit Date/Time: 01/22/20 08:16 Attending Provider: Mitch Randhawa Admit Provider: Mitch Randhawa Primary Care Provider: Michelle Hall Other Providers: Twan Cota ; Jaleel Oliva ; Billie Holder ; Fransisca Lopes ; Rj Leon ; Kyle Gregg ; Mary Anne Kitchen ; Siria Bui ; Demetrius Everett Jr ; Andreas Andres ; Tejinder Carmona ; Lorena Tatum Other Interventions: Discharge Summary Assessment (RN) Last Done: 01/23/20 17:02
== END 2020-01-23 18:33 | disposition home or self-care (01) ==
LOC: 3N 03:59 → ED 03:59 → 3N 10:29

== ENCOUNTER 2022-02-15 23:47 | Inpatient (IN) ==
[2022-02-16 00:55] LABS: iSTAT Creatinine 0.9 mg/dl (0.6-1.3); iSTAT Hemoglobin 17.3 g/dl (14.0-18.0); iSTAT Ionized Calcium 1.19 mmol/l (1.12-1.32); iSTAT Potassium 3.8 mmol/L (3.3-5.0)
[2022-02-16 00:57] LABS: Basophils # (auto) 0.05 K/uL (0-0.2); Basophils % (auto) 0.3 %; Eosinophils # (auto) 0.08 K/uL (0-0.50); Eosinophils % (auto) 0.5 %; Hematocrit (blood only) 46.6 % (40.1-51.0); Hemoglobin 16.2 g/dl (14.0-18.0); Immature Granulocytes # (auto) 0.08 K/uL (0.00-0.02); Immature Granulocytes % (auto) 0.5 %; Lymphocytes # (auto) 1.95 K/uL (1.2-3.4); Mean Corpuscular Hemoglobin 30.3 pg (25.0-34.0); Mean Corpuscular Hgb Conc 34.8 g/dL (32.0-36.0); Mean Corpuscular Volume 87.1 fL (80.0-100.0); Mean Platelet Volume 10.7 fL (9.4-12.4); Monocytes # (auto) 0.82 K/uL (0.24-0.82); Monocytes % (auto) 5.5 %; Neutrophils # (auto) 12.04 K/uL (1.4-6.5); Neutrophils % (auto) 80.2 %; Platelet Count 258 K/uL (130-400); RDW Coefficient of Variation 12.2 % (11.5-14.5); RDW Standard Deviation 38.8 fL (36.4-46.3); Red Blood Count 5.35 M/uL (4.63-6.08); White Blood Count 15.02 K/ul (4.8-10.8)
[2022-02-16 00:58] LABS: Appearance Urine Clear (Clear); Bilirubin Urine Negative (Negative); Blood Urine Negative (Negative); Color Urine Yellow; Glucose Urine UA Negative (Negative); Ketones Urine Negative (Negative); Leukocyte Esterase Urine Negative (Negative); Nitrite Urine Negative (Negative); Protein Urine Negative (Negative); Specific Gravity Urine 1.018 (1.000-1.030); Urobilinogen Urine Negative (Negative); pH Urine 5.5 (4.5-7.5)
[2022-02-16 01:22] LABS: Albumin Globulin Ratio 1.5 (0.9-2); Albumin Level 5.1 gm/dl (3.4-5.0); BUN Creatinine Ratio 26.5 (10-20); Bilirubin,Total 0.5 mg/dl (0.2-1.0); Creatinine Clr Calc Pharmacy 132.4 ml/min; Est GFR (African American) 129.4 ml/min; Est GFR (Non-African American) 111.6 ml/min; Globulin 3.4 gm/dl (2.5-4.0); Potassium 3.8 mmol/L (3.5-5.1); Total Protein 8.5 gm/dl (6.0-8.3)
[2022-02-16] MEDS ORDERED: fentaNYL citrate 100 MCG/2 ML VIAL IV STA ×2 (01:30→03:49)
[2022-02-16] MEDS ORDERED: SODIUM CHLORIDE 0.9% 1000ML 1,000 ML IV ONE (01:30)
--- NOTE | 2022-02-16 01:48 | Emergency Department Note ---
History of Present Illness General Chief complaint: Abdominal Pain Stated complaint: SHARP ABDOMINAL PAIN AND CHILLS Time Seen by Provider: 02/16/22 01:13 History of Present Illness Maximum Pain Intensity: 8 36-year-old male presents emergency department onset of mid abdominal pain that started at 7 PM this evening. Patient denies any nausea vomiting diarrhea. Patient denies fever. Patient's had a prior history of a bowel obstruction. Patient denies any other complaints. There are no other mitigating or alleviating factors patient currently states the pain is in the low suprapubic region rates it as moderate with no radiation. Home Medications Medication Instructions Recorded Confirmed Type furosemide 40 mg tablet 40 mg PO DAILY 01/22/20 02/16/22 History ondansetron 4 mg disintegrating 4 mg PO Q6H PRN nausea and 08/20/21 02/16/22 Rx tablet vomiting #15 tabs benzonatate 100 mg capsule 100 mg PO TID PRN Cough 02/16/22 02/16/22 History Allergies Allergy/AdvReac Type Severity Reaction Status Date / Time Cephalosporins Allergy Intermediate VERY RED Verified 02/16/22 00:53 RASH Sulfa (Sulfonamide Allergy Intermediate RASH- Verified 02/16/22 00:53 Antibiotics) JAZMIN NSAIDS (Non-Steroidal Allergy Unknown CAN'T Verified 02/16/22 00:53 Anti-Inflamma REMEMBER Penicillins Allergy Unknown CAN'T Verified 02/16/22 00:53 REMEMBER Pertussis Vaccines Allergy Unknown CAN'T Verified 02/16/22 00:53 REMEMBER Phenothiazines Allergy Unknown CAN'T Verified 02/16/22 00:53 REMEMBER vancomycin Allergy Unknown CAN'T Verified 02/16/22 00:53 REMEMBER zinc Allergy Unknown CAN'T Verified 02/16/22 00:53 REMEMBER aspirin AdvReac Intermediate NOSEBLEEDS Verified 02/16/22 00:53 Macrolide Antibiotics AdvReac Mild upset Verified 02/16/22 00:53 stomach to erythromycin Past Med/Surg History Medical History Hydrocephalus Surgical 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 Social History Smoking Status: Never smoker Second Hand Exposure: No; Hx Alcohol Use: Yes Hx Substance Use: No Preferred Language: Macedonian Communication Ability: Effective Wet Mixer Required: No Beliefs That Will Affect Care: None Current Living Situation: Spouse Feels Safe at Home: Yes Assistive Devices: None Review of Systems A total of 10 systems reviewed and were otherwise negative Constitutional: no fever Cardiovascular: no chest pain Gastrointestinal: + abdominal pain Physical Exam Vital Signs Vital Signs - 24 hr 02/16/22 00:00 02/16/22 00:10 02/16/22 00:26 Temperature 36.9 C Temperature Source Temporal Artery Scan Pulse Rate 79 75 80 Pulse Rate from SpO2 Sensor 81 Respiratory Rate 18 14 20 Respiratory Effort / Characteristics Non-Labored Spontaneous Respiratory Depth Normal Blood Pressure 140/92 Blood Pressure Mean 108 Blood Pressure Position Sitting Pulse Oximetry 97 98 99 Oxygen Delivery Method Room Air Room Air Sepsis Recent Fever Within 48 Hours No Sepsis New/Unexplained Change in Mental Status No Sepsis Action Taken by Nursing No Action Required 02/16/22 00:30 02/16/22 01:00 02/16/22 01:30 Temperature Temperature Source Pulse Rate 79 81 73 Pulse Rate from SpO2 Sensor 79 80 72 Respiratory Rate 21 17 12 Respiratory Effort / Characteristics Respiratory Depth Blood Pressure Blood Pressure Mean Blood Pressure Position Pulse Oximetry 98 98 100 Oxygen Delivery Method Sepsis Recent Fever Within 48 Hours Sepsis New/Unexplained Change in Mental Status Sepsis Action Taken by Nursing 02/16/22 02:22 Temperature Temperature Source Pulse Rate Pulse Rate from SpO2 Sensor 70 Respiratory Rate Respiratory Effort / Characteristics Respiratory Depth Blood Pressure 135/87 Blood Pressure Mean 103 Blood Pressure Position Pulse Oximetry 93 Oxygen Delivery Method Sepsis Recent Fever Within 48 Hours Sepsis New/Unexplained Change in Mental Status Sepsis Action Taken by Nursing GENERAL: Patient is awake alert in no acute distress patient is resting comfortably and showing no signs of anxiety EYES: The conjunctivae are clear. The pupils are round and reactive. EARS, NOSE, MOUTH AND THROAT: The nose is without any evidence of any deformity. Mucous membranes are moist. Tongue is midline. NECK: The neck is nontender and supple. RESPIRATORY: Normal respiratory effort is noted there is no evidence of wheezing rhonchi or rales CARDIOVASCULAR: Regular rate and rhythm noted there no murmurs rubs or gallops normal S1 normal S2. GASTROINTESTINAL: The abdomen is soft. Abdomen is midline tender in the bilateral lower quadrants there is decreased bowel sounds present; there is no rebound rigidity or guarding BACK: No midline tenderness or or step-off noted range of motion in flexion extension as well as rotation no signs of muscle spasm noted MUSCULOSKELETAL/EXTREMITIES: There is no evidence of gross deformity full range of motion is noted in the hips and shoulders. SKIN: There is no obvious evidence of any rash. There are no petechiae, pallor or cyanosis noted. NEUROLOGIC: Patient is awake alert and oriented x3 strength is symmetric PSYCH: Normal affect Course Reevaluation(s) Reevaluation #1: Patient continues to complain of pain but has no vomiting. Patient is found to have a small bowel obstruction on CT, will be admitted, was started on IV fluids received 2 doses of fentanyl Time: 04:52 Consultations Consultation #1: Dr. Andres from surgery, states he will see the patient in consultation Time: 04:35 Consultation #2: [facility]ist for admission Time: 04:52 Administered Medications Discontinued Medications Fentanyl Citrate (Fentanyl Citrate 100 Mcg/2 Ml Vial) 50 mcg IV NOW STA Stop: 02/16/22 01:31 Last Admin: 02/16/22 01:50 Dose: 50 mcg Documented By: KEO Fentanyl Citrate (Fentanyl Citrate 100 Mcg/2 Ml Vial) 50 mcg IV NOW STA Stop: 02/16/22 03:50 Last Admin: 02/16/22 04:03 Dose: 50 mcg Documented By: KEO Sodium Chloride (Nss 1000ml) 1,000 mls @ 999 mls/hr IV .Q1H1M ONE Stop: 02/16/22 02:30 Last Infusion: 02/16/22 02:57 Dose: 0 mls/hr Documented By: Admin: 02/16/22 01:51 Dose: 999 mls/hr Documented By: KEO Ioversol (Optiray 350 100ml) 88 ml IV ONCE ONE Stop: 02/16/22 02:27 Last Admin: 02/16/22 02:27 Dose: 88 ml Documented By: SHORTY Medical Decision Making Medical Records Attestation: I reviewed the patient's medical records. Home Medications Current Medication List: was personally reviewed by me Laboratory Data Result diagrams: 02/16/22 00:35 02/16/22 00:35 Lab Results 02/16/22 02/16/22 02/16/22 Range/Units 00:35 00:35 00:35 WBC 15.02 H (4.8-10.8) K/ul RBC 5.35 (4.63-6.08) M/uL Hgb 16.2 (14.0-18.0) g/dl POC Hgb (14.0-18.0) g/dl Hct 46.6 (40.1-51.0) % POC Hct (42-52) % MCV 87.1 (80.0-100.0) fL MCH 30.3 (25.0-34.0) pg MCHC 34.8 (32.0-36.0) g/dL RDW Std Deviation 38.8 (36.4-46.3) fL RDW Coeff of Artemio 12.2 (11.5-14.5) % Plt Count 258 (130-400) K/uL MPV 10.7 (9.4-12.4) fL Immature Gran % (Auto) 0.5 % Neut % (Auto) 80.2 % Lymph % (Auto) 13.0 % [place] % (Auto) 5.5 % Eos % (Auto) 0.5 % Baso % (Auto) 0.3 % Neut # (Auto) 12.04 H (1.4-6.5) K/uL Lymph # (Auto) 1.95 (1.2-3.4) K/uL [place] # (Auto) 0.82 (0.24-0.82) K/uL Eos # (Auto) 0.08 (0-0.50) K/uL Baso # (Auto) 0.05 (0-0.2) K/uL Immature Gran # (Auto) 0.08 H (0.00-0.02) K/uL POC Sodium (135-144) mmol/L Sodium 137 (136-145) mmol/L POC Potassium (3.3-5.0) mmol/L Potassium 3.8 (3.5-5.1) mmol/L POC Chloride (101-112) mmol/L Chloride 97 L (98-107) mmol/L Carbon Dioxide 32 (21-32) mmol/L POC Total CO2 (24-31) mmol/L Anion Gap 8 (3-11) POC Anion Gap (16-25) mmol/L POC BUN (7-18) mg/dl BUN 22 (6-23) mg/dl Creatinine 0.83 (0.6-1.4) mg/dl POC Creatinine (0.6-1.3) mg/dl Est Cr Clr Drug Dosing 132.4 ml/min Est GFR ( Amer) 129.4 ml/min Est GFR (Non-Af Amer) 111.6 ml/min BUN/Creatinine Ratio 26.5 H (10-20) Glucose 103 H (70-99(Fasting)) mg/dl POC Glucose (other) (70-99) mg/dl Calcium 10.0 (8.5-10.1) mg/dl POC Ioniz Calcium Christa (1.12-1.32) mmol/l Total Bilirubin 0.5 (0.2-1.0) mg/dl AST 21 (13-39) U/L ALT 28 (7-52) U/L Alkaline Phosphatase 78 (34-104) U/L Total Protein 8.5 H (6.0-8.3) gm/dl Albumin 5.1 H (3.4-5.0) gm/dl Globulin 3.4 (2.5-4.0) gm/dl Albumin/Globulin Ratio 1.5 (0.9-2) Lipase 26 (11-82) U/L Urine Color Yellow Urine Appearance Clear (Clear) Urine pH 5.5 (4.5-7.5) Ur Specific [place] 1.018 (1.000-1.030) Urine Protein Negative (Negative) Urine Glucose (UA) Negative (Negative) Urine Ketones Negative (Negative) Urine Blood Negative (Negative) Urine Nitrite Negative (Negative) Urine Bilirubin Negative (Negative) Urine Urobilinogen Negative (Negative) Ur Leukocyte Esterase Negative (Negative) SARS-CoV-2, RNA, NAAT (NEGATIVE) 02/16/22 02/16/22 Range/Units 00:42 05:00 WBC (4.8-10.8) K/ul RBC (4.63-6.08) M/uL Hgb (14.0-18.0) g/dl POC Hgb 17.3 (14.0-18.0) g/dl Hct (40.1-51.0) % POC Hct 51 (42-52) % MCV (80.0-100.0) fL MCH (25.0-34.0) pg MCHC (32.0-36.0) g/dL RDW Std Deviation (36.4-46.3) fL RDW Coeff of Artemio (11.5-14.5) % Plt Count (130-400) K/uL MPV (9.4-12.4) fL Immature Gran % (Auto) % Neut % (Auto) % Lymph % (Auto) % [place] % (Auto) % Eos % (Auto) % Baso % (Auto) % Neut # (Auto) (1.4-6.5) K/uL Lymph # (Auto) (1.2-3.4) K/uL [place] # (Auto) (0.24-0.82) K/uL Eos # (Auto) (0-0.50) K/uL Baso # (Auto) (0-0.2) K/uL Immature Gran # (Auto) (0.00-0.02) K/uL POC Sodium 138 (135-144) mmol/L Sodium (136-145) mmol/L POC Potassium 3.8 (3.3-5.0) mmol/L Potassium (3.5-5.1) mmol/L POC Chloride 97 L (101-112) mmol/L Chloride (98-107) mmol/L Carbon Dioxide (21-32) mmol/L POC Total CO2 30 (24-31) mmol/L Anion Gap (3-11) POC Anion Gap 16.0 (16-25) mmol/L POC BUN 24 H (7-18) mg/dl BUN (6-23) mg/dl Creatinine (0.6-1.4) mg/dl POC Creatinine 0.9 (0.6-1.3) mg/dl Est Cr Clr Drug Dosing ml/min Est GFR ( Amer) ml/min Est GFR (Non-Af Amer) ml/min BUN/Creatinine Ratio (10-20) Glucose (70-99(Fasting)) mg/dl POC Glucose (other) 104 H (70-99) mg/dl Calcium (8.5-10.1) mg/dl POC Ioniz Calcium Christa 1.19 (1.12-1.32) mmol/l Total Bilirubin (0.2-1.0) mg/dl AST (13-39) U/L ALT (7-52) U/L Alkaline Phosphatase (34-104) U/L Total Protein (6.0-8.3) gm/dl Albumin (3.4-5.0) gm/dl Globulin (2.5-4.0) gm/dl Albumin/Globulin Ratio (0.9-2) Lipase (11-82) U/L Urine Color Urine Appearance (Clear) Urine pH (4.5-7.5) Ur Specific [place] (1.000-1.030) Urine Protein (Negative) Urine Glucose (UA) (Negative) Urine Ketones (Negative) Urine Blood (Negative) Urine Nitrite (Negative) Urine Bilirubin (Negative) Urine Urobilinogen (Negative) Ur Leukocyte Esterase (Negative) SARS-CoV-2, RNA, NAAT NEGATIVE (NEGATIVE) Imaging Data Radiologist's Impression: CT abdomen pelvis high-grade small bowel obstruction with a transition point in right lower quadrant per radiology MDM Narrative Medical decision making differential diagnosis bowel obstruction, colitis, ga stroenteritis, diverticulitis, appendicitis. Plan is to check labs, CT, give IV fluids pain medicine. Patient was evaluated for abdominal pain was found to have a small bowel obstruction on CAT scan, was started on IV fluids IV pain medicine. Patient has no vomiting. General surgery was consulted, patient will be admitted to the hospitalist for further evaluation and treatment of small bowel obstruction. Impression & Plan Small bowel obstruction Discharge Plan Visit Data Chief Complaint: Abdominal Pain Stated Complaint: SHARP ABDOMINAL PAIN AND CHILLS ED Provider: Leonel Knapp Prescriptions Prescriptions: No Action furosemide 40 mg tablet 40 mg PO DAILY ondansetron 4 mg tablet,disintegrating 4 mg PO Q6H PRN (Reason: nausea and vomiting) Qty: 15 0RF benzonatate 100 mg capsule 100 mg PO TID PRN (Reason: Cough)
[2022-02-16] MEDS ORDERED: OPTIRAY 350 100ml IV ONE (02:26)
[2022-02-16] MEDS ORDERED: PROMETHAZINE HCL 12.5 MG in SODIUM CHLORIDE 0.9% 50 ML IV STA (05:59)
[2022-02-16] MEDS ORDERED: HYDROmorphone INJ 0.5 MG/0.5 ML SYR IV STA (05:59)
[2022-02-16] MEDS ORDERED: ONDANSETRON INJ 2 MG/ML 2 ML VIAL IV STA (06:09)
[2022-02-16] MEDS ORDERED: HYDROmorphone INJ 0.5 MG/0.5 ML SYR IV PRN (06:44)
[2022-02-16] MEDS ORDERED: D5W AND 1/2NSS 1,000 ML IV SCH (06:44)
[2022-02-16] MEDS ORDERED: ONDANSETRON INJ 2 MG/ML 2 ML VIAL IV PRN (06:44)
--- NOTE | 2022-02-16 07:37 | Surgery Consultation ---
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 will cover this pt over weekend, pt agreed with the plan, I answered all questions, I also informed pt, pt may need surgery treatment if his symptoms getting worse, pt understood, thanks, History of Present Illness Reason for Consultation: SBO Requesting Physician: Angel Beckham MD Attending Physician: Angel Beckham MD History of Present Illness Chief complaint: Abdominal Pain Stated complaint: SHARP ABDOMINAL PAIN AND CHILLS Time Seen by Provider: 02/16/22 01:13 History of Present Illness Maximum Pain Intensity: 8 36-year-old male presents emergency department onset of mid abdominal pain that started at 7 PM this evening. Patient denies any nausea vomiting diarrhea. Patient denies fever. Patient's had a prior history of a bowel obstruction. Patient denies any other complaints. There are no other mitigating or alleviating factors patient currently states the pain is in the low suprapubic region rates it as moderate with no radiation. I ( Andreas Andres MD ) got a call for consult SBO, I reviewed pt's H/P, labs and CT scan with pt, pt had SBO 2 years ago with conservative treatment for 3 days, then the SBO resolved, Home Medications Medication Instructions Recorded Confirmed Type furosemide 40 mg tablet 40 mg PO DAILY 01/22/20 02/16/22 History ondansetron 4 mg disintegrating 4 mg PO Q6H PRN nausea and 08/20/21 1 04/19/21 Rx tablet vomiting #15 tabs benzonatate 100 mg capsule 100 mg PO TID PRN Cough 02/16/22 02/16/22 History Allergies Allergy/AdvReac Type Severity Reaction Status Date / Time Cephalosporins Allergy Intermediate VERY RED Verified 02/16/22 00:53 RASH Sulfa (Sulfonamide Allergy Intermediate RASH- Verified 02/16/22 00:53 Antibiotics) JAZMIN NSAIDS (Non-Steroidal Allergy Unknown CAN'T Verified 02/16/22 00:53 Anti-Inflamma REMEMBER Penicillins Allergy Unknown CAN'T Verified 02/16/22 00:53 B REMEMBER Pertussis Vaccines Allergy Unknown CAN'T Verified 02/16/22 00:53 REMEMBER B Phenothiazines Allergy Unknown CAN'T Verified 02/16/22 00:53 REMEMBER vancomycin Allergy Unknown CAN'T Verified 02/16/22 00:53 REMEMBER zinc Allergy Unknown CAN'T Verified 02/16/22 00:53 REMEMBER aspirin AdvReac Intermediate NOSEBLEEDS Verified 02/16/22 00:53 Macrolide Antibiotics AdvReac Mild upset Verified 02/16/22 00:53 stomach to erythromycin Past Med/Surg History Medical History Hydrocephalus 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 Social History Smoking Status: Never smoker Second Hand Exposure: No; Hx Alcohol Use: Yes Hx Substance Use: No Preferred Language: Guatemalan Communication Ability: Effective Arterial Embalmer Required: No Beliefs That Will Affect Care: None Current Living Situation: Spouse Feels Safe at Home: Yes Assistive Devices: None Review of Systems A total of 10 systems reviewed and were otherwise negative Constitutional: no fever Cardiovascular: no chest pain Gastrointestinal: + abdominal pain Allergies Allergy/AdvReac Type Severity Reaction Status Date / Time Cephalosporins Allergy Intermediate VERY RED Verified 02/16/22 00:53 RASH Sulfa (Sulfonamide Allergy Intermediate RASH- Verified 02/16/22 00:53 Antibiotics) JAZMIN NSAIDS (Non-Steroidal Allergy Unknown CAN'T Verified 02/16/22 00:53 Anti-Inflamma REMEMBER Penicillins Allergy Unknown CAN'T Verified 02/16/22 00:53 REMEMBER Pertussis Vaccines Allergy Unknown CAN'T Verified 02/16/22 00:53 REMEMBER Phenothiazines Allergy Unknown CAN'T Verified 02/16/22 00:53 REMEMBER vancomycin Allergy Unknown CAN'T Verified 02/16/22 00:53 REMEMBER zinc Allergy Unknown CAN'T Verified 02/16/22 00:53 REMEMBER aspirin AdvReac Intermediate NOSEBLEEDS Verified 02/16/22 00:53 Macrolide Antibiotics AdvReac Mild upset Verified 02/16/22 00:53 stomach to erythromycin Home Medications Medication Instructions Recorded Confirmed Type furosemide 40 mg tablet 40 mg PO DAILY 01/22/20 02/16/22 History ondansetron 4 mg disintegrating 4 mg PO Q6H PRN nausea and 08/20/21 02/16/22 Rx tablet vomiting #15 tabs benzonatate 100 mg capsule 100 mg PO TID PRN Cough 02/16/22 02/16/22 History Patient History Medical History Hydrocephalus 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 Social History Smoking Status: Never smoker Second Hand Exposure: No; Hx Alcohol Use: Yes Alcohol type: beer Hx Substance Use: No Preferred Language: Guatemalan Communication Ability: Effective Arterial Embalmer Required: No Beliefs That Will Affect Care: None Current Living Situation: Spouse Other Information That Helps Us Care for You: No Feels Safe at Home: Yes Safety Concerns: Feels Safe At This Time Assistive Devices: Glasses Review of Systems Constitutional: as per Subjective / HPI Eyes: as per Subjective / HPI Respiratory: as per Subjective / HPI Cardiovascular: as per Subjective / HPI Gastrointestinal: SBO Genitourinary: + as per Subjective / HPI Neurologic: as per Subjective / HPI V-P shunt at age 1 Psychiatric: as per Subjective / HPI Endocrine: as per Subjective / HPI Hematologic / Lymphatic: as per Subjective / HPI Physical Exam Constitutional: WD/WN, vitals as above Eyes: PERRL, conjunctivae normal, anicteric sclerae Neck: trachea midline, no thyromegaly Respiratory: normal respiratory effort, lungs clear to auscultation Cardiovascular: RRR, no murmur, no edema Gastrointestinal (Abdomen): soft, mild tenderness, no rebound pain, mild distend, BS +, middle scar, Musculoskeletal: no cyanosis or clubbing, extremities motor strength 5/5 Neurologic: patellar DTR's 2+ bilat, sensation intact Psychiatric: A+Ox3, euthymic affect Results & Data ([facility]) Vital Signs (Past 12 Hours) Vital Signs Temp Pulse Pulse Resp BP BP Pulse Ox 02/16/22 07:27 36.6 C 82 18 147/97 H 96 02/16/22 07:00 37.1 C 79 16 144/90 H 95 02/16/22 06:28 02/16/22 03:30 75 14 97 02/16/22 03:00 67 16 98 02/16/22 02:30 71 21 96 02/16/22 02:22 135/87 93 02/16/22 01:30 73 12 100 02/16/22 01:00 81 17 98 02/16/22 00:30 79 21 98 02/16/22 00:26 80 20 99 02/16/22 00:10 75 14 98 02/16/22 00:00 36.9 C 79 18 140/92 97 O2 Del Method 02/16/22 07:27 Room Air 02/16/22 07:00 Room Air 02/16/22 06:28 Room Air 02/16/22 03:30 02/16/22 03:00 02/16/22 02:30 02/16/22 02:22 02/16/22 01:30 02/16/22 01:00 02/16/22 00:30 02/16/22 00:26 02/16/22 00:10 Room Air 02/16/22 00:00 Room Air Laboratory Results Abnormal lab results 02/16/22 02/16/22 02/16/22 Range/Units 00:35 00:35 00:42 WBC 15.02 H (4.8-10.8) K/ul Neut # (Auto) 12.04 H (1.4-6.5) K/uL Immature Gran # (Auto) 0.08 H (0.00-0.02) K/uL POC Chloride 97 L (101-112) mmol/L Chloride 97 L (98-107) mmol/L POC BUN 24 H (7-18) mg/dl BUN/Creatinine Ratio 26.5 H (10-20) Glucose 103 H (70-99(Fasting)) mg/dl POC Glucose (other) 104 H (70-99) mg/dl Total Protein 8.5 H (6.0-8.3) gm/dl Albumin 5.1 H (3.4-5.0) gm/dl Diagnostic Findings CT scan- SBO,
--- NOTE | 2022-02-16 08:15 | History and Physical Report ---
DATE OF ADMISSION: 02/16/2022. CHIEF COMPLAINT: Abdominal pain. HISTORY OF PRESENT ILLNESS: A 36-year-old male with past medical history significant for right bundle-branch block, sinus bradycardia, history of chronic appendicitis, left nephrolithiasis, lumbar degenerative disk disease, history of congenital hydrocephalus, papilledema, status post CASEY SAW OPERATOR shunt, history of vision loss, presents with abdominal pain since 7 p.m. last evening. No nausea, no vomiting, no diarrhea or constipation, no blood in stools or black stools. The pain is located in the middle of the abdomen, severe in nature. Pain medication is relieving this for short time, but it is coming back again. Denies any fever or chills. No chest pain, no shortness of breath, no headache, no blurred visions, no earache, no runny nose, no sore throat, no cough, no difficulty swallowing. Currently, resting comfortably and hemodynamically stable. ALLERGIES: CEPHALOSPORINS, SULFA ANTIBIOTICS, NSAIDS, PENICILLINS, PERTUSSIS VACCINES, PHENOTHIAZINES VANCOMYCIN, ZINC, ASPIRIN, MACROLIDE ANTIBIOTICS. PAST MEDICAL HISTORY: As mentioned above. PAST SURGICAL HISTORY: Decompression of the right optic nerve, EGDs, CASEY SAW OPERATOR shunt placement. MEDICATIONS: The patient is on Lasix 40 mg p.o. daily, Zofran 4 mg p.o. q. 6 hours p.r.n., benzonatate 100 mg p.o. t.i.d. p.r.n. FAMILY HISTORY: Significant for mother has breast cancer, paternal grandmother has breast cancer; father has diabetes, hypertension. SOCIAL HISTORY: , no smoking. Alcohol occasional. No drug use. REVIEW OF SYSTEMS: As per HPI. Rest of the review of systems is negative. PHYSICAL EXAMINATION: GENERAL: The patient is of moderate build, not in acute distress. VITAL SIGNS: Temperature 36.9, pulse 73, respiratory rate 12, blood pressure 135/87, oxygen 93% on room air. HEENT: Pupils equal, round and reactive to light. Oral mucosa moist. NECK: No JVD, no neck masses. CARDIOVASCULAR: S1 and S2 heard. Regular rate and rhythm. No murmur, no gallop. RESPIRATORY SYSTEM: Normal AP diameter. No accessory muscle use. No wheezing, no crackles. ABDOMEN: Soft, bowel sounds sluggish. Mild abdominal distention. Mild abdominal discomfort. No guarding, no rigidity. CENTRAL NERVOUS SYSTEM: Cranial nerves II-XII grossly intact, nonfocal. EXTREMITIES: No edema, no erythema. LABORATORY DATA: WBC 15, hemoglobin 16.2, hematocrit 46.6, platelets 258. Sodium 137, potassium 3.8, chloride 97, BUN 22, creatinine 0.8, serum glucose 103, calcium 10, total bilirubin 0.5, AST 21, ALT 28, alkaline phosphatase 78, total protein 8.5. Lipase 26. Urinalysis negative. SARS-CoV-2 rapid test negative. IMAGING DATA: CT of abdomen and pelvis preliminary report shows high-grade small-bowel obstruction with a transition point in the right lower quadrant, no pneumatosis or mesenteric gas seen. ASSESSMENT AND PLAN: A 36-year-old male who presents with abdominal pain found to have high grade small-bowel obstruction. 1. High-grade small-bowel obstruction. N.p.o., IV Dilaudid p.r.n., IV fluids, IV Zofran p.r.n. Surgical consult. Surgery notified by the ER. Monitor in the medical floor. Await surgical input.If symptoms worsens will place NG tube. 2. History of congenital hydrocephalus, status post CASEY SAW OPERATOR shunt. 3. Deep venous thrombosis prophylaxis: Sequential compression devices for now. DISPOSITION: Closely monitor in the medical floor. PT/OT prior to discharge. Social service to help with discharge planning. Job ID: [id number] MTDD
--- NOTE | 2022-02-16 08:20 | CT Scan Report ---
ABDOMEN AND PELVIS CT WITH IV CONTRAST CT DOSE: 350.82 mGy.cm HISTORY: Acute right lower quadrant abdominal pain rlq abd pain TECHNIQUE: Multiaxial CT images of the abdomen and pelvis were performed following the IV administrat ion of 88 cc of Optiray, A dose lowering technique was utilized adhering to the principles of ALARA. COMPARISON STUDY: 01/22/2020 FINDINGS: No acute process of the imaged lower chest. No pneumatosis or pneumoperitoneum. Unremarkabl e spleen, pancreas, gallbladder and adrenal glands. No suspicious hepatic mass lesions are identified . There are a few hypodense foci of the liver which are too small to characterize however favor cysts . Cystic foci within the region of the falciform ligament adjacent to the ventriculoperitoneal shunt catheter again noted measuring up to 1.8 cm, stable from prior. The visualized portions of the shunt catheter appear intact. The distal tip terminates adjacent to the anterior liver. Mild nonspecific bilateral perinephric stranding. 4 mm nonobstructing calculus of the inferior pole l eft kidney. No ureteral calculi or hydronephrosis. Decompressed or bladder with mild wall thickening. Aorta and IVC are unremarkable. No lymphadenopathy identified. Fluid-filled distal esophagus. Debris and fluid-filled distended stomach. High-grade small bowel obst ruction with small bowel loops measuring up to 4.1 cm transversely. Several loops of small bowel demo nstrate circumferential wall thickening. Transition point is noted within the right paracentral pelvi s. No obstructing lesion identified. Decompressed distal loops of small bowel and colon. Mild interlo op edema with trace free fluid. Normal appendix. Unremarkable soft tissues. No acute fracture. IMPRESSION: 1. High-grade small bowel obstruction with transition point within the abdominal right lower quadrant , likely secondary to adhesions. There is associated small bowel wall thickening with interloop edema and trace free fluid. Findings are similar to the obstruction seen on the study from 01/22/2020. 2. No pneumoperitoneum. 3. Normal appendix. 4. 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 ACT 112: Negative or not required by law. The above report was generated using voice recognition software. It may contain grammatical, syntax o r spelling errors. Electronically signed by: Bright Peñaloza M.D. 02/16/2022 8:18 AM
[2022-02-16] MEDS: FUROSEMIDE 40 MG TAB PO SCH (08:57)
[2022-02-16] MEDS: D5W AND 1/2NSS + 20MEQ KCL 20 MEQ/1,000 ML BAG IV SCH ×3 (08:57→23:36)
[2022-02-16] MEDS: CIPROFLOXACIN / D5W 400 MG/200 ML BAG IV SCH ×2 (09:00→18:51)
--- NOTE | 2022-02-16 11:03 | XRay Report ---
KUB HISTORY: Acute generalized abdominal pain with reported small bowel obstruction SBO COMPARISON: CT of same day FINDINGS: A coiled ventriculoperitoneal shunt catheter is again noted projected over the abdominal ri ght upper quadrant. Status post placement of enteric tube with distal tip projected over the distal s tomach. Small bowel obstruction with dilated air-filled loops of small bowel measuring up to 5 cm. r is also present within the large bowel with mild colonic fecal retention. No renal calculi. No ure teral calculi. No pneumoperitoneum or pneumatosis. No fracture. IMPRESSION: 1. Status post placement of an enteric tube with distal tip projected over the distal stomach. 2. Persistent small bowel obstruction. ACT 112: Negative or not required by law. The above report was generated using voice recognition software. It may contain grammatical, syntax o r spelling errors. Electronically signed by: Bright Peñaloza M.D. 02/16/2022 11:02 AM
--- NOTE | 2022-02-16 11:18 | Hospitalist Progress Note ---
Date of Service February 16, 2022 Assessment & Plan (1) Small bowel obstruction: Plan: - has history of SBO about 2 years ago that was treated conservatively at that time - NGT placed - surgery consult - conservative management - IVF - pain control - IV ciprofloxacin for now per surgery - encourage ambulation as tolerated - await return of bowel function (2) Leukocytosis: Plan: - likely reactive in the setting of SBO - on cipro in setting of SBP per surgery - will monitor for now (3) Obstructive hydrocephalus: Plan: - s/p INFANTRYMAN shunt - no indication of dysfunction or infection - noted - monitor Plan DVT ppx: SCDs for now Code Status: Full Code Dispo: med/surg Greg Jiménez MD [facility] Medicine Admission and Anticipated Discharge Date Admission Date: February 16, 2022 Subjective Patient with h/o congenital hydrocephalus s/p INFANTRYMAN shunt found to have SBO, NGT placed, IVF started. Surgical consult with conservative management for now. Patient reports some improvement since admission. Denies chest pain, shortness of breath, n/v at this time, not passing gas, denies abdominal pain but has some soreness. Denies dysuria. Review of Systems Review of Systems: All systems reviewed & are unremarkable except as noted in Subjective Physical Exam Physical Exam: GENERAL: The patient is of moderate build, not in acute distress. HEENT: Pupils equal, round and reactive to light. Oral mucosa moist. NECK: No JVD, no neck masses. CARDIOVASCULAR: S1 and S2 heard. Regular rate and rhythm. No murmur, no gallop. RESPIRATORY SYSTEM: Normal AP diameter. No accessory muscle use. No wheezing, no crackles. ABDOMEN: Soft, bowel sounds present. Mild abdominal tenderness to palpation. No guarding, no rigidity. CENTRAL NERVOUS SYSTEM: Cranial nerves II-XII grossly intact, nonfocal. EXTREMITIES: No edema, no erythema. Results & Data Results & Data ([facility]) Vital Signs (Past 12 Hours) Vital Signs Temp Pulse Pulse Resp BP BP Pulse Ox 02/16/22 07:27 36.6 C 82 18 147/97 H 96 02/16/22 07:00 37.1 C 79 16 144/90 H 95 02/16/22 06:28 02/16/22 03:30 75 14 97 02/16/22 03:00 67 16 98 02/16/22 02:30 71 21 96 02/16/22 02:22 135/87 93 02/16/22 01:30 73 12 100 02/16/22 01:00 81 17 98 02/16/22 00:30 79 21 98 02/16/22 00:26 80 20 99 02/16/22 00:10 75 14 98 02/16/22 00:00 36.9 C 79 18 140/92 97 O2 Del Method 02/16/22 07:27 Room Air 02/16/22 07:00 Room Air 02/16/22 06:28 Room Air 02/16/22 03:30 02/16/22 03:00 02/16/22 02:30 02/16/22 02:22 02/16/22 01:30 02/16/22 01:00 02/16/22 00:30 02/16/22 00:26 02/16/22 00:10 Room Air 02/16/22 00:00 Room Air Diagnostic Findings Laboratory Results WBC 15.02 K/ul (4.8-10.8) H 02/16/22 00:35 RBC 5.35 M/uL (4.63-6.08) 02/16/22 00:35 Hgb 16.2 g/dl (14.0-18.0) 02/16/22 00:35 POC Hgb 17.3 g/dl (14.0-18.0) 02/16/22 00:42 Hct 46.6 % (40.1-51.0) 02/16/22 00:35 POC Hct 51 % (42-52) 02/16/22 00:42 MCV 87.1 fL (80.0-100.0) 02/16/22 00:35 MCH 30.3 pg (25.0-34.0) 02/16/22 00:35 MCHC 34.8 g/dL (32.0-36.0) 02/16/22 00:35 RDW Std Deviation 38.8 fL (36.4-46.3) 02/16/22 00:35 RDW Coeff of Artemio 12.2 % (11.5-14.5) 02/16/22 00:35 Plt Count 258 K/uL (130-400) 02/16/22 00:35 MPV 10.7 fL (9.4-12.4) 02/16/22 00:35 Immature Gran % (Auto) 0.5 % 02/16/22 00:35 Neut % (Auto) 80.2 % 02/16/22 00:35 Lymph % (Auto) 13.0 % 02/16/22 00:35 [place] % (Auto) 5.5 % 02/16/22 00:35 Eos % (Auto) 0.5 % 02/16/22 00:35 Baso % (Auto) 0.3 % 02/16/22 00:35 Neut # (Auto) 12.04 K/uL (1.4-6.5) H 02/16/22 00:35 Lymph # (Auto) 1.95 K/uL (1.2-3.4) 02/16/22 00:35 [place] # (Auto) 0.82 K/uL (0.24-0.82) 02/16/22 00:35 Eos # (Auto) 0.08 K/uL (0-0.50) 02/16/22 00:35 Baso # (Auto) 0.05 K/uL (0-0.2) 02/16/22 00:35 Immature Gran # (Auto) 0.08 K/uL (0.00-0.02) H 02/16/22 00:35 POC Sodium 138 mmol/L (135-144) 02/16/22 00:42 Sodium 137 mmol/L (136-145) 02/16/22 00:35 POC Potassium 3.8 mmol/L (3.3-5.0) 02/16/22 00:42 Potassium 3.8 mmol/L (3.5-5.1) 02/16/22 00:35 POC Chloride 97 mmol/L (101-112) L 02/16/22 00:42 Chloride 97 mmol/L (98-107) L 02/16/22 00:35 Carbon Dioxide 32 mmol/L (21-32) 02/16/22 00:35 POC Total CO2 30 mmol/L (24-31) 02/16/22 00:42 Anion Gap 8 (3-11) 02/16/22 00:35 POC Anion Gap 16.0 mmol/L (16-25) 02/16/22 00:42 POC BUN 24 mg/dl (7-18) H 02/16/22 00:42 BUN 22 mg/dl (6-23) 02/16/22 00:35 Creatinine 0.83 mg/dl (0.6-1.4) 02/16/22 00:35 POC Creatinine 0.9 mg/dl (0.6-1.3) 12 00:42 Est Cr Clr Drug Dosing 132.4 ml/min 12 00:35 Est GFR ( Amer) 129.4 ml/min 12 00:35 Est GFR (Non-Af Amer) 111.6 ml/min 02/16/22 00:35 BUN/Creatinine Ratio 26.5 (10-20) H 02/16/22 00:35 Glucose 103 mg/dl (70-99(Fasting)) H 02/16/22 00:35 POC Glucose (other) 104 mg/dl (70-99) H 02/16/22 00:42 Calcium 10.0 mg/dl (8.5-10.1) 02/16/22 00:35 POC Ioniz Calcium Christa 1.19 mmol/l (1.12-1.32) 02/16/22 00:42 Total Bilirubin 0.5 mg/dl (0.2-1.0) 02/16/22 00:35 AST 21 U/L (13-39) 02/16/22 00:35 ALT 28 U/L (7-52) 02/16/22 00:35 Alkaline Phosphatase 78 U/L (34-104) 02/16/22 00:35 Total Protein 8.5 gm/dl (6.0-8.3) H 02/16/22 00:35 Albumin 5.1 gm/dl (3.4-5.0) H 02/16/22 00:35 Globulin 3.4 gm/dl (2.5-4.0) 02/16/22 00:35 Albumin/Globulin Ratio 1.5 (0.9-2) 02/16/22 00:35 Lipase 26 U/L (11-82) 02/16/22 00:35 Urine Color Yellow 02/16/22 00:35 Urine Appearance Clear (Clear) 02/16/22 00:35 Urine pH 5.5 (4.5-7.5) 02/16/22 00:35 Ur Specific [place] 1.018 (1.000-1.030) 02/16/22 00:35 Urine Protein Negative (Negative) 02/16/22 00:35 Urine Glucose (UA) Negative (Negative) 02/16/22 00:35 Urine Ketones Negative (Negative) 02/16/22 00:35 Urine Blood Negative (Negative) 02/16/22 00:35 Urine Nitrite Negative (Negative) 02/16/22 00:35 Urine Bilirubin Negative (Negative) 02/16/22 00:35 Urine Urobilinogen Negative (Negative) 02/16/22 00:35 Ur Leukocyte Esterase Negative (Negative) 02/16/22 00:35 SARS-CoV-2, RNA, NAAT NEGATIVE (NEGATIVE) 02/16/22 05:00 Impressions Abdomen/Pelvis CT 02/16/22 01:[address] WITH IV CONTRAST CT DOSE: 350.82 mGy.cm HISTORY: Acute right lower quadrant abdominal pain rlq abd pain TECHNIQUE: Multiaxial CT images of the abdomen and pelvis were performed following the IV administration of 88 cc of Optiray, A dose lowering technique was utilized adhering to the principles of ALARA. COMPARISON STUDY: 01/22/2020 FINDINGS: No acute process of the imaged lower chest. No pneumatosis or pneumoperitoneum. Unremarkable spleen, pancreas, gallbladder and adrenal glands. No suspicious hepatic mass lesions are identified. There are a few hypodense foci of the liver which are too small to characterize however favor cysts. Cystic foci within the region of the falciform ligament adjacent to the ventriculoperitoneal shunt catheter again noted measuring up to 1.8 cm, stable from prior. The visualized portions of the shunt catheter appear intact. The distal tip terminates adjacent to the anterior liver. Mild nonspecific bilateral perinephric stranding. 4 mm nonobstructing calculus of the inferior pole left kidney. No ureteral calculi or hydronephrosis. Decompressed or bladder with mild wall thickening. Aorta and IVC are unremarkable. No lymphadenopathy identified. Fluid-filled distal esophagus. Debris and fluid-filled distended stomach. High- grade small bowel obstruction with small bowel loops measuring up to 4.1 cm transversely. Several loops of small bowel demonstrate circumferential wall thickening. Transition point is noted within the right paracentral pelvis. No obstructing lesion identified. Decompressed distal loops of small bowel and colon. Mild interloop edema with trace free fluid. Normal appendix. Unremarkable soft tissues. No acute fracture. IMPRESSION: 1. High-grade small bowel obstruction with transition point within the abdominal right lower quadrant, likely secondary to adhesions. There is associated small bowel wall thickening with interloop edema and trace free fluid. Findings are similar to the obstruction seen on the study from 01/22/2020. 2. No pneumoperitoneum. 3. Normal appendix. 4. 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 ACT 112: Negative or not required by law. The above report was generated using voice recognition software. It may contain grammatical, syntax or spelling errors. Electronically signed by: Bright Peñaloza M.D. 02/16/2022 8:18 AM KUB X-Ray 02/16/22 10:15 KUB HISTORY: Acute generalized abdominal pain with reported small bowel obstruction SBO COMPARISON: CT of same day FINDINGS: A coiled ventriculoperitoneal shunt catheter is again noted projected over the abdominal right upper quadrant. Status post placement of enteric tube with distal tip projected over the distal stomach. Small bowel obstruction with dilated air-filled loops of small bowel measuring up to 5 cm. Air is also present within the large bowel with mild colonic fecal retention. No renal calculi. No ureteral calculi. No pneumoperitoneum or pneumatosis. No fracture. IMPRESSION: 1. Status post placement of an enteric tube with distal tip projected over the distal stomach. 2. Persistent small bowel obstruction. ACT 112: Negative or not required by law. The above report was generated using voice recognition software. It may contain grammatical, syntax or spelling errors. Electronically signed by: Bright Peñaloza M.D. 02/16/2022 11:02 AM Medications Administered Current Inpatient Medications Furosemide (Furosemide 40 Mg Tab) 40 mg PO DAILY [facility] Stop: 03/18/22 08:59 Last Admin: 02/16/22 08:57 Dose: Not Given Hydromorphone HCl (Hydromorphone Inj 0.5 Mg/0.5 Ml Syr) 0.5 mg IV Q3H PRN PRN Reason: Pain Stop: 03/02/22 06:43 Potassium Chloride/Dextrose/Sod Cl (D5w And 1/2nss + 20meq Kcl) 20 meq in 1,000 mls @ 125 mls/hr IV .Q8H [facility]; Protocol Stop: 03/18/22 07:44 Last Admin: 02/16/22 08:57 Dose: 125 mls/hr Ciprofloxacin (Cipro / D5w) 400 mg in 200 mls @ 100 mls/hr IV Q12H [facility]; Protocol Stop: 02/26/22 07:44 Last Infusion: 02/16/22 10:48 Dose: Infused Ondansetron HCl (Ondansetron Inj 2 Mg/Ml 2 Ml Vial) 4 mg IV Q6H PRN PRN Reason: Nausea Stop: 03/18/22 06:43
--- NOTE | 2022-02-16 16:47 | Electrocardiogram Report ---
Test Reason : Blood Pressure : / mmHG Vent. Rate : 077 BPM Atrial Rate : 077 BPM P-R Int : 142 ms QRS Dur : 144 ms QT Int : 420 ms P-R-T Axes : 061 100 039 degrees QTc Int : 475 ms Normal sinus rhythm with sinus arrhythmia Right bundle branch block Abnormal ECG When compared with ECG of 01-JAN-2016 07:47, No significant change was found Confirmed by Cm Sumner ([id number]) on 02/16/2022 4:47:17 PM Referred By: REFERRED SELF Confirmed By:Cm Sumner
--- NOTE | 2022-02-17 06:03 | Surgery Progress Note ---
Date of Service February 17, 2022 Assessment & Plan (1) Small bowel obstruction: Plan: Patient has been admitted on the hospitalist service. Recommend proceeding as follows: Continue n.p.o. status and maintain NG tube for the present time. I prefer to keep the NG tube in for now as output was considerable last night. Will consider removing NG tube if patient continues to have improved bowel function. Once NG tube removed consideration will be given to advancing diet beginning with clear liquids Continue mobilization as able Check a.m. labs when available Admission and Anticipated Discharge Date Admission Date: February 16, 2022 Supervising Physician Co-Signing Physician Notes Patient seen examined, labs reviewed, agree with above. Admitted with small bowel obstruction, had same episode 2 years ago treated nonoperatively. He is passing flatus. NG tube 500 cc. He feels much better. On exam he is afebrile with stable vitals. His abdomen is soft, nontender, mildly distended. Labs reviewed. We will continue NG tube for now, if he continues to pass flatus and/or has a bowel movement then may attempt clamp trial. We will take it slow for now as patient does not want to have the NG tube placed again. Subjective Patient is resting comfortably in bed. He denies abdominal pain at this time. No nausea or vomiting. He notes that he is having a small amount of flatus over the past shift. He reports he has been out of bed since his hospitalization. Physical Exam Gastrointestinal (Abdomen): Abdomen is soft and nondistended. Bowel sounds are hypoactive. There is minimal pain with palpation in the center of his abdomen near the umbilicus. There is no rebound tenderness or guarding. NG tube is in place; is drained approximately 500 cc over the last shift. Results & Data ([facility]) Vital Signs (Past 12 Hours) Vital Signs Temp Pulse Resp BP Pulse Ox O2 Del Method 02/16/22 22:13 36.7 C 70 16 130/78 96 Room Air PG Care Time/CCT Total # of Minutes Spent Total Time Spent with Patient: Total time spent is greater than 50% in coordination of care (as documented) at patient's floor/unit and/or counseling patient: Coding Level of Care Code 04375 Subseq Hosp Care Lvl 1 Diagnoses Small bowel obstruction K56.609
[2022-02-17 06:47] LABS: Basophils # (auto) 0.04 K/uL (0-0.2); Basophils % (auto) 0.4 %; Eosinophils # (auto) 0.16 K/uL (0-0.50); Eosinophils % (auto) 1.7 %; Hemoglobin 13.4 g/dl (14.0-18.0); Immature Granulocytes # (auto) 0.04 K/uL (0.00-0.02); Immature Granulocytes % (auto) 0.4 %; Lymphocytes # (auto) 2.42 K/uL (1.2-3.4); Mean Corpuscular Hemoglobin 30.2 pg (25.0-34.0); Mean Corpuscular Hgb Conc 34.4 g/dL (32.0-36.0); Monocytes # (auto) 0.99 K/uL (0.24-0.82); Monocytes % (auto) 10.2 %; Neutrophils # (auto) 6.04 K/uL (1.4-6.5); Neutrophils % (auto) 62.3 %; Platelet Count 213 K/uL (130-400); RDW Coefficient of Variation 12.7 % (11.5-14.5); RDW Standard Deviation 40.8 fL (36.4-46.3); Red Blood Count 4.43 M/uL (4.63-6.08); White Blood Count 9.69 K/ul (4.8-10.8)
[2022-02-17 07:02] LABS: Calcium 8.3 mg/dl (8.5-10.1); Creatinine Clr Calc Pharmacy 146.6 ml/min; Est GFR (African American) 134.9 ml/min; Est GFR (Non-African American) 116.4 ml/min; Phosphorus 2.2 mg/dl (2.5-4.9); Potassium 4.3 mmol/L (3.5-5.1)
[2022-02-17] MEDS: D5W AND 1/2NSS + 20MEQ KCL 20 MEQ/1,000 ML BAG IV SCH ×3 (07:38→22:38)
[2022-02-17] MEDS ORDERED: SODIUM PHOSPHATE 3 MMOL/1 ML 5 ML VIAL IV ONE (07:56)
[2022-02-17] MEDS ORDERED: SODIUM PHOSPHATE 30 MMOL in SODIUM CHLORIDE 0.9% 500 ML IV ONE (08:15)
[2022-02-17] MEDS: CIPROFLOXACIN / D5W 400 MG/200 ML BAG IV SCH ×2 (08:22→20:56)
[2022-02-17] MEDS: FUROSEMIDE 40 MG TAB PO SCH (10:15)
--- NOTE | 2022-02-17 11:16 | Hospitalist Progress Note ---
Date of Service February 17, 2022 Assessment & Plan (1) Small bowel obstruction: Plan: - has history of SBO about 2 years ago that was treated conservatively at that time - NGT placed - surgery consult - conservative management - IVF - pain control - IV ciprofloxacin for now per surgery - encourage ambulation as tolerated - await return of bowel function - once more bowel function returns, will start on clears and advance diet as tolerated (2) Leukocytosis: Plan: - likely reactive in the setting of SBO - on cipro in setting of SBP per surgery - will monitor for now - resolved (3) Obstructive hydrocephalus: Plan: - s/p JOB PRESS FEEDER shunt - no indication of dysfunction or infection - noted - monitor Plan DVT ppx: SCDs for now Code Status: Full Code Dispo: med/surg Greg Jiménez MD [facility] Medicine Admission and Anticipated Discharge Date Admission Date: February 16, 2022 Subjective Patient with h/o congenital hydrocephalus s/p JOB PRESS FEEDER shunt found to have SBO, NGT placed, IVF started. Surgical consult with conservative management for now. Some flatus 02/17/2022 but surgery to keep NGT until more bowel function returns then will start with clear liquids and advance diet slowly. Patient reports some improvement since admission and had a couple episodes of passing gas this morning. Denies chest pain, shortness of breath, n/v at this time, Denies dysuria. Review of Systems Review of Systems: All systems reviewed & are unremarkable except as noted in Subjective Physical Exam Physical Exam: GENERAL: The patient is of moderate build, not in acute distress. HEENT: Pupils equal, round and reactive to light. Oral mucosa moist. NGT in place with moderate output still NECK: No JVD, no neck masses. CARDIOVASCULAR: S1 and S2 heard. Regular rate and rhythm. No murmur, no gallop. RESPIRATORY SYSTEM: Normal AP diameter. No accessory muscle use. No wheezing, no crackles. ABDOMEN: Soft, bowel sounds present. Mild abdominal tenderness to palpation. No guarding, no rigidity. CENTRAL NERVOUS SYSTEM: Cranial nerves II-XII grossly intact, nonfocal. EXTREMITIES: No edema, no erythema. Results & Data Results & Data ([facility]) Vital Signs (Past 12 Hours) Vital Signs Temp Resp BP Pulse Ox O2 Del Method 02/17/22 08:27 36.7 C 12 128/78 96 Room Air Diagnostic Findings Laboratory Results WBC 9.69 K/ul (4.8-10.8) 02/17/22 06:12 RBC 4.43 M/uL (4.63-6.08) L 02/17/22 06:12 Hgb 13.4 g/dl (14.0-18.0) L 02/17/22 06:12 POC Hgb 17.3 g/dl (14.0-18.0) 02/16/22 00:42 Hct 39.0 % (40.1-51.0) L 02/17/22 06:12 POC Hct 51 % (42-52) 02/16/22 00:42 MCV 88.0 fL (80.0-100.0) 02/17/22 06:12 MCH 30.2 pg (25.0-34.0) 02/17/22 06:12 MCHC 34.4 g/dL (32.0-36.0) 02/17/22 06:12 RDW Std Deviation 40.8 fL (36.4-46.3) 02/17/22 06:12 RDW Coeff of Artemio 12.7 % (11.5-14.5) 02/17/22 06:12 Plt Count 213 K/uL (130-400) 02/17/22 06:12 MPV 11.0 fL (9.4-12.4) 02/17/22 06:12 Immature Gran % (Auto) 0.4 % 02/17/22 06:12 Neut % (Auto) 62.3 % 02/17/22 06:12 Lymph % (Auto) 25.0 % 02/17/22 06:12 [place] % (Auto) 10.2 % 02/17/22 06:12 Eos % (Auto) 1.7 % 02/17/22 06:12 Baso % (Auto) 0.4 % 02/17/22 06:12 Neut # (Auto) 6.04 K/uL (1.4-6.5) 02/17/22 06:12 Lymph # (Auto) 2.42 K/uL (1.2-3.4) 02/17/22 06:12 [place] # (Auto) 0.99 K/uL (0.24-0.82) H 02/17/22 06:12 Eos # (Auto) 0.16 K/uL (0-0.50) 02/17/22 06:12 Baso # (Auto) 0.04 K/uL (0-0.2) 02/17/22 06:12 Immature Gran # (Auto) 0.04 K/uL (0.00-0.02) H 02/17/22 06:12 POC Sodium 138 mmol/L (135-144) 02/16/22 00:42 Sodium 137 mmol/L (136-145) 02/17/22 06:12 POC Potassium 3.8 mmol/L (3.3-5.0) 02/16/22 00:42 Potassium 4.3 mmol/L (3.5-5.1) 02/17/22 06:12 POC Chloride 97 mmol/L (101-112) L 02/16/22 00:42 Chloride 104 mmol/L (98-107) 02/17/22 06:12 Carbon Dioxide 32 mmol/L (21-32) 02/17/22 06:12 POC Total CO2 30 mmol/L (24-31) 02/16/22 00:42 Anion Gap 1 (3-11) L 02/17/22 06:12 POC Anion Gap 16.0 mmol/L (16-25) 02/16/22 00:42 POC BUN 24 mg/dl (7-18) H 02/16/22 00:42 BUN 12 mg/dl (6-23) 02/17/22 06:12 Creatinine 0.75 mg/dl (0.6-1.4) 02/17/22 06:12 POC Creatinine 0.9 mg/dl (0.6-1.3) 02/16/22 00:42 Est Cr Clr Drug Dosing 146.6 ml/min 02/17/22 06:12 Est GFR ( Amer) 134.9 ml/min 02/17/22 06:12 Est GFR (Non-Af Amer) 116.4 ml/min 02/17/22 06:12 BUN/Creatinine Ratio 16.0 (10-20) 02/17/22 06:12 Glucose 111 mg/dl (70-99(Fasting)) H 02/17/22 06:12 POC Glucose (other) 104 mg/dl (70-99) H 02/16/22 00:42 Calcium 8.3 mg/dl (8.5-10.1) L 02/17/22 06:12 POC Ioniz Calcium Christa 1.19 mmol/l (1.12-1.32) 02/16/22 00:42 Phosphorus 2.2 mg/dl (2.5-4.9) L 02/17/22 06:12 Magnesium 2.0 mg/dl (1.7-2.4) 02/17/22 06:12 Total Bilirubin 0.5 mg/dl (0.2-1.0) 02/16/22 00:35 AST 21 U/L (13-39) 02/16/22 00:35 ALT 28 U/L (7-52) 02/16/22 00:35 Alkaline Phosphatase 78 U/L (34-104) 02/16/22 00:35 Total Protein 8.5 gm/dl (6.0-8.3) H 02/16/22 00:35 Albumin 5.1 gm/dl (3.4-5.0) H 02/16/22 00:35 Globulin 3.4 gm/dl (2.5-4.0) 02/16/22 00:35 Albumin/Globulin Ratio 1.5 (0.9-2) 02/16/22 00:35 Lipase 26 U/L (11-82) 02/16/22 00:35 Urine Color Yellow 02/16/22 00:35 Urine Appearance Clear (Clear) 02/16/22 00:35 Urine pH 5.5 (4.5-7.5) 02/16/22 00:35 Ur Specific [place] 1.018 (1.000-1.030) 02/16/22 00:35 Urine Protein Negative (Negative) 02/16/22 00:35 Urine Glucose (UA) Negative (Negative) 02/16/22 00:35 Urine Ketones Negative (Negative) 02/16/22 00:35 Urine Blood Negative (Negative) 02/16/22 00:35 Urine Nitrite Negative (Negative) 02/16/22 00:35 Urine Bilirubin Negative (Negative) 02/16/22 00:35 Urine Urobilinogen Negative (Negative) 02/16/22 00:35 Ur Leukocyte Esterase Negative (Negative) 02/16/22 00:35 SARS-CoV-2, RNA, NAAT NEGATIVE (NEGATIVE) 02/16/22 05:00 Impressions Abdomen/Pelvis CT 02/16/22 01:[address] WITH IV CONTRAST CT DOSE: 350.82 mGy.cm HISTORY: Acute right lower quadrant abdominal pain rlq abd pain TECHNIQUE: Multiaxial CT images of the abdomen and pelvis were performed following the IV administration of 88 cc of Optiray, A dose lowering technique was utilized adhering to the principles of ALARA. COMPARISON STUDY: 01/22/2020 FINDINGS: No acute process of the imaged lower chest. No pneumatosis or pneumoperitoneum. Unremarkable spleen, pancreas, gallbladder and adrenal glands. No suspicious hepatic mass lesions are identified. There are a few hypodense foci of the liver which are too small to characterize however favor cysts. Cystic foci within the region of the falciform ligament adjacent to the ventriculoperitoneal shunt catheter again noted measuring up to 1.8 cm, stable from prior. The visualized portions of the shunt catheter appear intact. The distal tip terminates adjacent to the anterior liver. Mild nonspecific bilateral perinephric stranding. 4 mm nonobstructing calculus of the inferior pole left kidney. No ureteral calculi or hydronephrosis. Decompressed or bladder with mild wall thickening. Aorta and IVC are unremarkable. No lymphadenopathy identified. Fluid-filled distal esophagus. Debris and fluid-filled distended stomach. High- grade small bowel obstruction with small bowel loops measuring up to 4.1 cm transversely. Several loops of small bowel demonstrate circumferential wall thickening. Transition point is noted within the right paracentral pelvis. No obstructing lesion identified. Decompressed distal loops of small bowel and colon. Mild interloop edema with trace free fluid. Normal appendix. Unremarkable soft tissues. No acute fracture. IMPRESSION: 1. High-grade small bowel obstruction with transition point within the abdominal right lower quadrant, likely secondary to adhesions. There is associated small bowel wall thickening with interloop edema and trace free fluid. Findings are similar to the obstruction seen on the study from 01/22/2020. 2. No pneumoperitoneum. 3. Normal appendix. 4. 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 ACT 112: Negative or not required by law. The above report was generated using voice recognition software. It may contain grammatical, syntax or spelling errors. Electronically signed by: Bright Peñaloza M.D. 02/16/2022 8:18 AM KUB X-Ray 02/16/22 10:15 KUB HISTORY: Acute generalized abdominal pain with reported small bowel obstruction SBO COMPARISON: CT of same day FINDINGS: A coiled ventriculoperitoneal shunt catheter is again noted projected over the abdominal right upper quadrant. Status post placement of enteric tube with distal tip projected over the distal stomach. Small bowel obstruction with dilated air-filled loops of small bowel measuring up to 5 cm. Air is also present within the large bowel with mild colonic fecal retention. No renal calculi. No ureteral calculi. No pneumoperitoneum or pneumatosis. No fracture. IMPRESSION: 1. Status post placement of an enteric tube with distal tip projected over the distal stomach. 2. Persistent small bowel obstruction. ACT 112: Negative or not required by law. The above report was generated using voice recognition software. It may contain grammatical, syntax or spelling errors. Electronically signed by: Bright Peñaloza M.D. 02/16/2022 11:02 AM Medications Administered Current Inpatient Medications Furosemide (Furosemide 40 Mg Tab) 40 mg PO DAILY [facility] Stop: 03/18/22 08:59 Last Admin: 02/17/22 10:15 Dose: 40 mg Hydromorphone HCl (Hydromorphone Inj 0.5 Mg/0.5 Ml Syr) 0.5 mg IV Q3H PRN PRN Reason: Pain Stop: 03/02/22 06:43 Potassium Chloride/Dextrose/Sod Cl (D5w And 1/2nss + 20meq Kcl) 20 meq in 1,000 mls @ 125 mls/hr IV .Q8H [facility]; Protocol Stop: 03/18/22 07:44 Last Admin: 02/17/22 07:38 Dose: 125 mls/hr Ciprofloxacin (Cipro / D5w) 400 mg in 200 mls @ 100 mls/hr IV Q12H [facility]; Protocol Stop: 02/26/22 07:44 Last Infusion: 02/17/22 10:23 Dose: Infused Sodium Phosphate 30 mmol/ (Sodium Chloride) 510 mls @ 88 mls/hr IV ONE ONE Stop: 02/17/22 14:02 Last Admin: 02/17/22 09:59 Dose: 88 mls/hr Ondansetron HCl (Ondansetron Inj 2 Mg/Ml 2 Ml Vial) 4 mg IV Q6H PRN PRN Reason: Nausea Stop: 03/18/22 06:43
--- NOTE | 2022-02-18 05:31 | Surgery Progress Note ---
Date of Service February 18, 2022 Assessment & Plan (1) Small bowel obstruction: Plan: Patient has been admitted on the hospitalist service. Recommend proceeding as follows: Continue n.p.o. status and maintain NG tube for the present time. I would be inclined to keep the NG tube in place for now as he continues to have a considerable amount of output. Prior to removing NG tube it would be reasonable to perform a clamping trial and then checking residual amounts to see if NG tube can then be removed at that time. Once NG tube removed consideration will be given to advancing diet beginning with clear liquids Continue mobilization as able Check a.m. labs when available Admission and Anticipated Discharge Date Admission Date: February 16, 2022 Supervising Physician Co-Signing Physician Notes Patient seen and examined, agree with above. Admitted with small bowel obstruction. He has been passing flatus and had a bowel movement. His abdomen feels soft and much better. On exam he is afebrile stable vitals. Abdomen soft, nontender, nondistended. His NG tube did have 2 L recorded his output, though this appears to be somewhat miscalculated as he had over 400 cc of output in 30 minutes and I think this is unlikely. We will attempt a clamp trial, and if he is having no symptoms in his residuals are less than 2 4:50 hours then we can remove the tube and start him on clear liquids. Subjective Patient is resting comfortably in bed. He notes that his abdominal pain that was present at time admission has improved. He has not had any nausea vomiting overnight. He notes he continues to pass flatus. Physical Exam Gastrointestinal (Abdomen): Abdomen is soft and nondistended. There is minimal to no pain with palpation. There is no rebound tenderness or guarding. NG tube is in place and is drained a total of 2000 cc over the past 24 hours. Results & Data ([facility]) Vital Signs (Past 12 Hours) Vital Signs Temp Pulse Resp BP Pulse Ox O2 Del Method 02/17/22 23:13 36.7 C 60 18 122/82 97 Room Air PG Care Time/CCT Total # of Minutes Spent Total Time Spent with Patient: Total time spent is greater than 50% in coordination of care (as documented) at patient's floor/unit and/or counseling patient: Coding Level of Care Code 04499 Subseq Hosp Care Lvl 1 Diagnoses Small bowel obstruction K56.609
[2022-02-18 06:09] LABS: BUN Creatinine Ratio 14.7 (10-20); Calcium 8.5 mg/dl (8.5-10.1); Creatinine Clr Calc Pharmacy 161.7 ml/min; Est GFR (African American) 140.4 ml/min; Est GFR (Non-African American) 121.2 ml/min; Magnesium 1.9 mg/dl (1.7-2.4); Phosphorus 2.9 mg/dl (2.5-4.9); Potassium 3.7 mmol/L (3.5-5.1)
[2022-02-18] MEDS: D5W AND 1/2NSS + 20MEQ KCL 20 MEQ/1,000 ML BAG IV SCH ×2 (06:17→15:36)
[2022-02-18] MEDS: FUROSEMIDE 40 MG TAB PO SCH (08:43)
[2022-02-18] MEDS: CIPROFLOXACIN / D5W 400 MG/200 ML BAG IV SCH ×2 (08:43→19:44)
--- NOTE | 2022-02-18 13:34 | Hospitalist Progress Note ---
Date of Service February 18, 2022 Assessment & Plan (1) Small bowel obstruction: Plan: Small bowel obstruction H/O SBO about 2 years ago which resolved with conservative management --CT ABD:High-grade small bowel obstruction with transition point within the abdominal right lower quadrant, likely secondary to adhesions. There is associated small bowel wall thickening with interloop edema and trace free fluid. Findings are similar to the obstruction seen on the study from 01/22/2020. No pneumoperitoneum. Normal appendix. 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 -- Continue gentle IV fluids, bowel rest --NG tube clamped today --Conservative management as per surgery Appreciate surgery input Encouraged to ambulate (2) Leukocytosis: Plan: - likely reactive in the setting of SBO - on cipro in setting of SBP per surgery Monitor (3) Obstructive hydrocephalus: Plan: Obstructive hydrocephalus s/p HARDWARE ENGINEERING MANAGER shunt Papilledema On chronic diuretics Monitor Plan DVT px: SCDs for now Code Status: Full Code Admission and Anticipated Discharge Date Admission Date: February 16, 2022 Subjective Patient is seen and examined at bedside Ambulating in hallways this morning Had 2 bowel movements NG tube clamped Denies any nausea, vomiting, abdominal pain, chest pain, dizziness Discussed with family at bedside Review of Systems Review of Systems: All systems reviewed & are unremarkable except as noted in Subjective Physical Exam Physical Exam: Physical Exam: Vitals signs as noted above General Appearance:Moderately built and nourished, no apparent distress Head: normocephalic, Atraumatic,+ NG tube Eyes: normal inspection, EOMI Neck: supple, Trachea midline Respiratory/Chest: Normal breath sounds, CTA Cardiovascular: S1, S2, No murmur Abdomen/GI:Soft, Non tender, Decreased Bowel sounds Extremities/Musculoskeletal:normal inspection, no edema Neurologic/Psych:AAOX3, grossly no focal neurological deficits Skin: normal color, warm Results & Data Results & Data ([facility]) Vital Signs (Past 12 Hours) Vital Signs Temp Pulse Resp BP Pulse Ox O2 Del Method 02/18/22 07:56 36.5 C 65 13 124/80 97 Room Air Laboratory Results [facility] 02/18/22 05:27 Sodium 138 Potassium 3.7 Chloride 103 Carbon Dioxide 30 BUN 10 Creatinine 0.68 Glucose 112 H Calcium 8.5
[2022-02-19 06:13] LABS: Hematocrit (blood only) 39.1 % (40.1-51.0); Hemoglobin 13.4 g/dl (14.0-18.0); Mean Corpuscular Hemoglobin 30.3 pg (25.0-34.0); Mean Corpuscular Hgb Conc 34.3 g/dL (32.0-36.0); Mean Corpuscular Volume 88.5 fL (80.0-100.0); Mean Platelet Volume 10.8 fL (9.4-12.4); Platelet Count 210 K/uL (130-400); RDW Coefficient of Variation 12.4 % (11.5-14.5); RDW Standard Deviation 40.1 fL (36.4-46.3); Red Blood Count 4.42 M/uL (4.63-6.08); White Blood Count 7.55 K/ul (4.8-10.8)
[2022-02-19 06:35] LABS: BUN Creatinine Ratio 13.8 (10-20); Calcium 8.9 mg/dl (8.5-10.1); Creatinine Clr Calc Pharmacy 126.4 ml/min; Est GFR (African American) 126.9 ml/min; Est GFR (Non-African American) 109.5 ml/min; Potassium 3.9 mmol/L (3.5-5.1)
[2022-02-19] MEDS: D5W AND 1/2NSS + 20MEQ KCL 20 MEQ/1,000 ML BAG IV SCH (07:35)
[2022-02-19] MEDS: CIPROFLOXACIN / D5W 400 MG/200 ML BAG IV SCH (07:38)
[2022-02-19] MEDS: FUROSEMIDE 40 MG TAB PO SCH (07:39)
--- NOTE | 2022-02-19 10:08 | Surgery Progress Note ---
Date of Service February 19, 2022 Assessment & Plan (1) Small bowel obstruction: Plan: Resolving + bowel movement last night tolerated clears no abdominal pain Plan: Advance to low fiber diet d/c IV Cipro if tolerates diet okay for discharge later today ambulate continue medical management Dr. Andres has seen and examined pt, agrees with above. Admission and Anticipated Discharge Date Admission Date: February 16, 2022 Subjective feeling well tolerated clear liquids bowel movement last night no abdominal pain ambulating hallway Physical Exam Constitutional: WD/WN, vitals as above no acute distress and not ill appearing Gastrointestinal (Abdomen): Inspection/Auscultation: abdomen normal to inspection; abdomen not distended Percussion/Palpation: abdomen soft; abdomen nontender, no guarding and abdomen not rigid Skin: no rashes, warm and dry Psychiatric: A+Ox3, euthymic affect Results & Data ([facility]) Vital Signs (Past 12 Hours) Vital Signs Temp Pulse Pulse Resp BP Pulse Ox O2 Del Method 02/19/22 08:18 36.4 C L 52 L 16 128/74 95 Room Air 02/18/22 22:31 36.8 C 66 18 126/77 96 Room Air Laboratory Results 02/19/22 02/19/22 Range/Units 05:42 05:42 WBC 7.55 (4.8-10.8) K/ul RBC 4.42 L (4.63-6.08) M/uL Hgb 13.4 L (14.0-18.0) g/dl Hct 39.1 L (40.1-51.0) % MCV 88.5 (80.0-100.0) fL MCH 30.3 (25.0-34.0) pg MCHC 34.3 (32.0-36.0) g/dL RDW Std Deviation 40.1 (36.4-46.3) fL RDW Coeff of Artemio 12.4 (11.5-14.5) % Plt Count 210 (130-400) K/uL MPV 10.8 (9.4-12.4) fL Sodium 137 (136-145) mmol/L Potassium 3.9 (3.5-5.1) mmol/L Chloride 101 (98-107) mmol/L Carbon Dioxide 31 (21-32) mmol/L Anion Gap 5 (3-11) BUN 12 (6-23) mg/dl Creatinine 0.87 (0.6-1.4) mg/dl Est Cr Clr Drug Dosing 126.4 ml/min Est GFR ( Amer) 126.9 ml/min Est GFR (Non-Af Amer) 109.5 ml/min BUN/Creatinine Ratio 13.8 (10-20) Glucose 96 (70-99(Fasting)) mg/dl Calcium 8.9 (8.5-10.1) mg/dl
--- NOTE | 2022-02-19 11:22 | Hospitalist Progress Note ---
Date of Service February 19, 2022 Assessment & Plan (1) Small bowel obstruction: Plan: Small bowel obstruction H/O SBO about 2 years ago which resolved with conservative management --CT ABD:High-grade small bowel obstruction with transition point within the abdominal right lower quadrant, likely secondary to adhesions. There is associated small bowel wall thickening with interloop edema and trace free fluid. Findings are similar to the obstruction seen on the study from 01/22/2020. No pneumoperitoneum. Normal appendix. 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 -- Continue gentle IV fluids --NG tube discontinued yesterday --Conservative management as per surgery Appreciate surgery input Encouraged to ambulate Tolerated clear liquid diet Advance to low fiber diet today Needs follow-up with surgery upon discharge (2) Leukocytosis: Plan: - likely reactive in the setting of SBO -Empiric Cipro discontinued Monitor (3) Obstructive hydrocephalus: Plan: Obstructive hydrocephalus s/p FINANCIAL COORDINATOR shunt Papilledema On chronic diuretics Monitor Plan DVT px: SCDs for now Code Status: Full Code Admission and Anticipated Discharge Date Admission Date: February 16, 2022 Subjective Patient is seen and examined at bedside Doing well today Had BM today Discussed with surgery No new complaints Denies any nausea, vomiting, abdominal pain, chest pain, dizziness Review of Systems Review of Systems: All systems reviewed & are unremarkable except as noted in Subjective Physical Exam Physical Exam: Physical Exam: Vitals signs as noted above General Appearance:Moderately built and nourished, no apparent distress Head: normocephalic, Atraumatic Eyes: normal inspection, EOMI Neck: supple, Trachea midline Respiratory/Chest: Normal breath sounds, CTA Cardiovascular: S1, S2, No murmur Abdomen/GI:Soft, Non tender, Bowel sounds present Extremities/Musculoskeletal:normal inspection, no edema Neurologic/Psych:AAOX3, grossly no focal neurological deficits Skin: normal color, warm Results & Data Results & Data ([facility]) Vital Signs (Past 12 Hours) Vital Signs Temp Pulse Resp BP Pulse Ox O2 Del Method 02/19/22 08:18 36.4 C L 52 L 16 128/74 95 Room Air Laboratory Results Short CBC 02/19/22 Range/Units 05:42 WBC 7.55 (4.8-10.8) K/ul Hgb 13.4 L (14.0-18.0) g/dl Hct 39.1 L (40.1-51.0) % Plt Count 210 (130-400) K/uL [facility] 02/19/22 05:42 Sodium 137 Potassium 3.9 Chloride 101 Carbon Dioxide 31 BUN 12 Creatinine 0.87 Glucose 96 Calcium 8.9
--- NOTE | 2022-02-19 14:22 | Discharge Summary ---
Date of Service February 19, 2022 Admission HPI Per Admitting Provider CHIEF COMPLAINT: Abdominal pain. HISTORY OF PRESENT ILLNESS: A 36-year-old male with past medical history significant for right bundle-branch block, sinus bradycardia, history of chronic appendicitis, left nephrolithiasis, lumbar degenerative disk disease, history of congenital hydrocephalus, papilledema, status post FINE JEWELRY SALES ASSOCIATE shunt, history of vision loss, presents with abdominal pain since 7 p.m. last evening. No nausea, no vomiting, no diarrhea or constipation, no blood in stools or black stools. The pain is located in the middle of the abdomen, severe in nature. Pain medication is relieving this for short time, but it is coming back again. Denies any fever or chills. No chest pain, no shortness of breath, no headache, no blurred visions, no earache, no runny nose, no sore throat, no cough, no difficulty swallowing. Currently, resting comfortably and hemodynamically stable. Admission Exam Per Admitting Provider PHYSICAL EXAMINATION: GENERAL: The patient is of moderate build, not in acute distress. VITAL SIGNS: Temperature 36.9, pulse 73, respiratory rate 12, blood pressure 135/87, oxygen 93% on room air. HEENT: Pupils equal, round and reactive to light. Oral mucosa moist. NECK: No JVD, no neck masses. CARDIOVASCULAR: S1 and S2 heard. Regular rate and rhythm. No murmur, no gallop. RESPIRATORY SYSTEM: Normal AP diameter. No accessory muscle use. No wheezing, no crackles. ABDOMEN: Soft, bowel sounds sluggish. Mild abdominal distention. Mild abdominal discomfort. No guarding, no rigidity. CENTRAL NERVOUS SYSTEM: Cranial nerves II-XII grossly intact, nonfocal. EXTREMITIES: No edema, no erythema. Principal Diagnosis Small bowel obstruction Discharge Data Allergies Allergy/AdvReac Type Severity Reaction Status Date / Time Cephalosporins Allergy Intermediate VERY RED Verified 02/16/22 00:53 RASH Sulfa (Sulfonamide Allergy Intermediate RASH- Verified 02/16/22 00:53 Antibiotics) JAZMIN NSAIDS (Non-Steroidal Allergy Unknown CAN'T Verified 02/16/22 00:53 Anti-Inflamma REMEMBER Penicillins Allergy Unknown CAN'T Verified 02/16/22 00:53 REMEMBER Pertussis Vaccines Allergy Unknown CAN'T Verified 02/16/22 00:53 REMEMBER Phenothiazines Allergy Unknown CAN'T Verified 02/16/22 00:53 REMEMBER vancomycin Allergy Unknown CAN'T Verified 02/16/22 00:53 REMEMBER zinc Allergy Unknown CAN'T Verified 02/16/22 00:53 REMEMBER aspirin AdvReac Intermediate NOSEBLEEDS Verified 02/16/22 00:53 Macrolide Antibiotics AdvReac Mild upset Verified 02/16/22 00:53 stomach to erythromycin Consultations 02/16/22 04:49 ED Decision to Admit Stat 02/16/22 06:44 Consult General Surgery Routine Procedures Performed Laboratory Results WBC 7.55 K/ul (4.8-10.8) 02/19/22 05:42 RBC 4.42 M/uL (4.63-6.08) L 02/19/22 05:42 Hgb 13.4 g/dl (14.0-18.0) L 02/19/22 05:42 POC Hgb 17.3 g/dl (14.0-18.0) 02/16/22 00:42 Hct 39.1 % (40.1-51.0) L 02/19/22 05:42 POC Hct 51 % (42-52) 02/16/22 00:42 MCV 88.5 fL (80.0-100.0) 02/19/22 05:42 MCH 30.3 pg (25.0-34.0) 02/19/22 05:42 MCHC 34.3 g/dL (32.0-36.0) 02/19/22 05:42 RDW Std Deviation 40.1 fL (36.4-46.3) 02/19/22 05:42 RDW Coeff of Artemio 12.4 % (11.5-14.5) 02/19/22 05:42 Plt Count 210 K/uL (130-400) 02/19/22 05:42 MPV 10.8 fL (9.4-12.4) 02/19/22 05:42 Immature Gran % (Auto) 0.4 % 02/17/22 06:12 Neut % (Auto) 62.3 % 02/17/22 06:12 Lymph % (Auto) 25.0 % 02/17/22 06:12 [place] % (Auto) 10.2 % 02/17/22 06:12 Eos % (Auto) 1.7 % 02/17/22 06:12 Baso % (Auto) 0.4 % 02/17/22 06:12 Neut # (Auto) 6.04 K/uL (1.4-6.5) 02/17/22 06:12 Lymph # (Auto) 2.42 K/uL (1.2-3.4) 02/17/22 06:12 [place] # (Auto) 0.99 K/uL (0.24-0.82) H 02/17/22 06:12 Eos # (Auto) 0.16 K/uL (0-0.50) 02/17/22 06:12 Baso # (Auto) 0.04 K/uL (0-0.2) 02/17/22 06:12 Immature Gran # (Auto) 0.04 K/uL (0.00-0.02) H 02/17/22 06:12 POC Sodium 138 mmol/L (135-144) 02/16/22 00:42 Sodium 137 mmol/L (136-145) 02/19/22 05:42 POC Potassium 3.8 mmol/L (3.3-5.0) 02/16/22 00:42 Potassium 3.9 mmol/L (3.5-5.1) 02/19/22 05:42 POC Chloride 97 mmol/L (101-112) L 02/16/22 00:42 Chloride 101 mmol/L (98-107) 02/19/22 05:42 Carbon Dioxide 31 mmol/L (21-32) 02/19/22 05:42 POC Total CO2 30 mmol/L (24-31) 02/16/22 00:42 Anion Gap 5 (3-11) 02/19/22 05:42 POC Anion Gap 16.0 mmol/L (16-25) 02/16/22 00:42 POC BUN 24 mg/dl (7-18) H 02/16/22 00:42 BUN 12 mg/dl (6-23) 02/19/22 05:42 Creatinine 0.87 mg/dl (0.6-1.4) 02/19/22 05:42 POC Creatinine 0.9 mg/dl (0.6-1.3) 02/16/22 00:42 Est Cr Clr Drug Dosing 126.4 ml/min 02/19/22 05:42 Est GFR ( Amer) 126.9 ml/min 02/19/22 05:42 Est GFR (Non-Af Amer) 109.5 ml/min 02/19/22 05:42 BUN/Creatinine Ratio 13.8 (10-20) 02/19/22 05:42 Glucose 96 mg/dl (70-99(Fasting)) 02/19/22 05:42 POC Glucose (other) 104 mg/dl (70-99) H 02/16/22 00:42 Calcium 8.9 mg/dl (8.5-10.1) 02/19/22 05:42 POC Ioniz Calcium Christa 1.19 mmol/l (1.12-1.32) 02/16/22 00:42 Phosphorus 2.9 mg/dl (2.5-4.9) 02/18/22 05:27 Magnesium 1.9 mg/dl (1.7-2.4) 02/18/22 05:27 Total Bilirubin 0.5 mg/dl (0.2-1.0) 02/16/22 00:35 AST 21 U/L (13-39) 02/16/22 00:35 ALT 28 U/L (7-52) 02/16/22 00:35 Alkaline Phosphatase 78 U/L (34-104) 02/16/22 00:35 Total Protein 8.5 gm/dl (6.0-8.3) H 02/16/22 00:35 Albumin 5.1 gm/dl (3.4-5.0) H 02/16/22 00:35 Globulin 3.4 gm/dl (2.5-4.0) 02/16/22 00:35 Albumin/Globulin Ratio 1.5 (0.9-2) 02/16/22 00:35 Lipase 26 U/L (11-82) 02/16/22 00:35 Urine Color Yellow 02/16/22 00:35 Urine Appearance Clear (Clear) 02/16/22 00:35 Urine pH 5.5 (4.5-7.5) 02/16/22 00:35 Ur Specific [place] 1.018 (1.000-1.030) 02/16/22 00:35 Urine Protein Negative (Negative) 02/16/22 00:35 Urine Glucose (UA) Negative (Negative) 02/16/22 00:35 Urine Ketones Negative (Negative) 02/16/22 00:35 Urine Blood Negative (Negative) 02/16/22 00:35 Urine Nitrite Negative (Negative) 02/16/22 00:35 Urine Bilirubin Negative (Negative) 02/16/22 00:35 Urine Urobilinogen Negative (Negative) 02/16/22 00:35 Ur Leukocyte Esterase Negative (Negative) 02/16/22 00:35 SARS-CoV-2, RNA, NAAT NEGATIVE (NEGATIVE) 02/16/22 05:00 Impressions Abdomen/Pelvis CT 02/16/22 01:[address] WITH IV CONTRAST CT DOSE: 350.82 mGy.cm HISTORY: Acute right lower quadrant abdominal pain rlq abd pain TECHNIQUE: Multiaxial CT images of the abdomen and pelvis were performed following the IV administration of 88 cc of Optiray, A dose lowering technique was utilized adhering to the principles of ALARA. COMPARISON STUDY: 01/22/2020 FINDINGS: No acute process of the imaged lower chest. No pneumatosis or pneumoperitoneum. Unremarkable spleen, pancreas, gallbladder and adrenal glands. No suspicious hepatic mass lesions are identified. There are a few hypodense foci of the liver which are too small to characterize however favor cysts. Cystic foci within the region of the falciform ligament adjacent to the ventriculoperitoneal shunt catheter again noted measuring up to 1.8 cm, stable from prior. The visualized portions of the shunt catheter appear intact. The distal tip terminates adjacent to the anterior liver. Mild nonspecific bilateral perinephric stranding. 4 mm nonobstructing calculus of the inferior pole left kidney. No ureteral calculi or hydronephrosis. Decompressed or bladder with mild wall thickening. Aorta and IVC are unremarkable. No lymphadenopathy identified. Fluid-filled distal esophagus. Debris and fluid-filled distended stomach. High-grade small bowel obstruction with small bowel loops measuring up to 4.1 cm transversely. Several loops of small bowel demonstrate circumferential wall thickening. Transition point is noted within the right paracentral pelvis. No obstructing lesion identified. Decompressed distal loops of small bowel and colon. Mild interloop edema with trace free fluid. Normal appendix. Unremarkable soft tissues. No acute fracture. IMPRESSION: 1. High-grade small bowel obstruction with transition point within the abdominal right lower quadrant, likely secondary to adhesions. There is associated small bowel wall thickening with interloop edema and trace free fluid. Findings are similar to the obstruction seen on the study from 01/22/2020. 2. No pneumoperitoneum. 3. Normal appendix. 4. 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 ACT 112: Negative or not required by law. The above report was generated using voice recognition software. It may contain grammatical, syntax or spelling errors. Electronically signed by: Bright Peñaloza M.D. 02/16/2022 8:18 AM KUB X-Ray 02/16/22 10:15 KUB HISTORY: Acute generalized abdominal pain with reported small bowel obstruction SBO COMPARISON: CT of same day FINDINGS: A coiled ventriculoperitoneal shunt catheter is again noted projected over the abdominal right upper quadrant. Status post placement of enteric tube with distal tip projected over the distal stomach. Small bowel obstruction with dilated air-filled loops of small bowel measuring up to 5 cm. Air is also present within the large bowel with mild colonic fecal retention. No renal calculi. No ureteral calculi. No pneumoperitoneum or pneumatosis. No fracture. IMPRESSION: 1. Status post placement of an enteric tube with distal tip projected over the distal stomach. 2. Persistent small bowel obstruction. ACT 112: Negative or not required by law. The above report was generated using voice recognition software. It may contain grammatical, syntax or spelling errors. Electronically signed by: Bright Peñaloza M.D. 02/16/2022 11:02 AM Ordered Studies 02/16/22 01:13 CT Abd and Pelvis [CT abd pelvis IV con only] Stat Hospital Course (1) Small bowel obstruction: Small bowel obstruction H/O SBO about 2 years ago which resolved with conservative management --CT ABD:High-grade small bowel obstruction with transition point within the abdominal right lower quadrant, likely secondary to adhesions. There is associated small bowel wall thickening with interloop edema and trace free fluid. Findings are similar to the obstruction seen on the study from 01/22/2020. No pneumoperitoneum. Normal appendix. 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 -- Continue gentle IV fluids --NG tube discontinued yesterday --Conservative management as per surgery Appreciate surgery input Encouraged to ambulate Tolerated low fiber diet Needs follow-up with surgery upon discharge (2) Leukocytosis: - likely reactive in the setting of SBO -Empiric Cipro discontinued Monitor (3) Obstructive hydrocephalus: Obstructive hydrocephalus s/p FINE JEWELRY SALES ASSOCIATE shunt Papilledema On chronic diuretics Monitor Plan DVT px: SCDs for now Code Status: Full Code Total Time Total Time Spent Total Time Spent (In Minutes): 45 minutes Discharge Plan Discharge Items Patient Disposition: Home - Self-Care Reason For Visit: ABDOMINAL PAIN, SBO Discharge Diagnosis: Small bowel obstruction Activity: Per Instructions section Exercise/Sports: Gradually increase as tolerated Non-emergency contact: Primary Care Provider and Surgeon Call non-emergency contact if: you have any medication questions, your symptoms worsen, your pain is concerning for you and you have a fever Follow-up/Referrals: Michelle Hawkins MD [Primary Care Provider] - (Date & Time 02/23/2022 11:00 AM Provider Mahsa Vidal MD Department General Internal Medicine [facility] ) Diet: Low Fiber Addtl Attending Provider Instructions: Follow-up with your primary care physician on 02/23/2022 11:00 AM as scheduled Follow-up with your surgeon in 2 weeks Seek immediate medical attention if your symptoms reoccur or worsen Please take all medications as instructed on discharge list below. Please call if you have any questions or problems. You can reach a [facility] hospitalist on duty at [facility] 24 hours a day by calling [phone] Pending Studies at Discharge: No Stand-Alone Forms: My [facility], Work/School Release, Smoking Cessa tion Medications and DC Order Prescriptions: Continued furosemide 40 mg tablet 40 mg PO DAILY ondansetron 4 mg tablet,disintegrating 4 mg PO Q6H PRN (Reason: nausea and vomiting) Qty: 15 0RF benzonatate 100 mg capsule 100 mg PO TID PRN (Reason: Cough) Discharge Orders: Discharge Order (Routine); Ordered 02/19/22 Ordered By: Fernando Trevino/Other Patient Handouts: Low-Fiber Diet Admission Data Admit Date/Time: 02/16/22 05:44 Attending Provider: Fernando Cabrera Admit Provider: Twan Cota Primary Care Provider: Michelle Hawkins Other Providers: Twan Cota ; Andreas Andres
== END 2022-02-19 16:28 | disposition home or self-care (01) | DRG 389 ==
LOC: ED 23:47 → 3W 02-16 05:44 → SUATTDRO 02-16 05:44 → 3W 02-16 06:28